=== PATIENT | male | born 2000 | race Caucasian/White ===

== ENCOUNTER → 2020-09-14 12:04 | Outpatient (CLI) | payer BC, SELFPAY ==
--- NOTE | ~2020-09-14 | XR_ITS ---
EXAMINATION: XR forearm RT 2V DATE: 09/14/2020 12:15 INDICATION: Right forearm injury and pain. TECHNIQUE: 2 views of right forearm were obtained. COMPARISON: None. FINDINGS: Bone alignment is normal. No fracture. Joint spaces are well maintained. There is no elbow joint effusion. IMPRESSION: 1. Normal right forearm. Reviewed, dictated and finalized at location A. IMPRESSION: 1. Normal right forearm.
== END ==
PROVIDERS: PCP Nurse Practitioner Adult Health; Visit Provider Pediatrics
DX: S59.911A Unspecified injury of right forearm, initial encounter (principal); X58.XXXA Exposure to other specified factors, initial encounter
CPT/HCPCS: 73090

== ENCOUNTER 2022-11-20 08:54 | Outpatient (CLI) | payer BC, SELFPAY ==
[2022-11-20 18:57] LABS: Basophils Percent Auto 0.7 % (0.2-1.2); Eosinophils Absolute Auto 0.2 K/mm3 (0-0.3); Eosinophils Percent Auto 3.6 % (0-4.4); Hematocrit 46.4 % (42.0-52.0); Hemoglobin 15.9 g/dL (14.0-18.0); Immature Granulocyte Absolute 0.02 K/mm3 (0.00-0.031); Immature Granulocyte Percent A 0.3 % (0-0.5); Lymphocytes Absolute Auto 2.18 K/mm3 (0.9-3.2); Lymphocytes Percent Auto 35.7 % (18.3-44.2); Mean Corpuscular HGB Conc 34.3 g/dl (32-36); Mean Corpuscular Hemoglobin 31.9 pg (26-34); Mean Corpuscular Volume 93.2 fl (80-100); Mean Platelet Volume 12.1 fl (7.4-10.4); Monocytes Absolute Auto 0.6 K/mm3 (0.1-0.6); Monocytes Percent Auto 10.5 % (2.6-8.5); Neutrophils Percent Auto 49.2 % (45.5-73.1); Platelet Count Result 219 k/mm3 (150-375); Red Blood Count 4.98 M/mm3 (4.6-6.20); Red Cell Distribution Width 11.3 % (11.5-14.5); White Blood Count 6.1 K/mm3 (4.5-10.0)
[2022-11-20 19:45] LABS: Hemoglobin A1C 4.9 % (<5.7)
[2022-11-20 20:12] LABS: Alanine Aminotransferase 96 U/L (6-50); Albumin Level 4.2 g/dL (3.5-5.1); Alkaline Phosphatase 68 U/L (38-126); Anion Gap 5 mmol/L (8-16); Aspartate Amino Transferase 52 U/L (17-59); Bilirubin,Total 0.5 mg/dL (0.2-1.3); Blood Urea Nitrogen 9 mg/dL (9-20); Calcium 8.9 mg/dL (8.4-10.2); Carbon Dioxide 29 mmol/L (22-30); Chloride 104 mmol/L (98-107); Cholesterol 148 mg/dL (0-200); Estimated Glomerular Filt Rate > 60; Glucose 88 mg/dL (65-110); HDL Direct 45 mg/dL; Potassium 4.1 mmol/L (3.4-5.0); Sodium 138 mmol/L (137-145); Triglycerides 250 mg/dL (<150)
[2022-11-20 20:23] LABS: LDL Cholesterol Direct 71 mg/dL
== END 2022-11-20 08:55 | disposition home or self-care (01) ==
LOC: ANHGOSHLAB 08:56
PROVIDERS: PCP Family Medicine; Visit Provider Family Medicine
DX: Z00.00 Encounter for general adult medical examination without abnormal findings (principal); R73.9 Hyperglycemia, unspecified; Z13.220 Encounter for screening for lipoid disorders; F41.8 Other specified anxiety disorders; G43.909 Migraine, unspecified, not intractable, without status migrainosus; E53.8 Deficiency of other specified B group vitamins; E55.9 Vitamin D deficiency, unspecified
CPT/HCPCS: 36415; 80053; 80061; 82306; 82607; 83036; 84443; 85025

== ENCOUNTER 2025-04-27 11:17 | Inpatient (IN) | payer BC, SELFPAY ==
[2025-04-27] VITALS (8 sets, daily range): BP systolic 129–153; BP diastolic 85–100; PULSE 72–88; RESP 15–19; TEMP 36.6; O2SAT 97–100; BMI 29.1
--- NOTE | ~2025-04-27 | XR_ITS ---
EXAMINATION: XR lumbar puncture diagnostic DATE: 04/28/2025 17:01 INDICATION: Ataxia and acute weakness in the lower extremities. 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 TECHNIQUE: The procedure including the risks and benefits was discussed with the patient. Risks discu ssed included spinal headache, cerebrospinal fluid leak, bleeding, and infection. The patient underst ood the risks and agreed to proceed. A timeout was performed to verify the patient's name, date of , and procedure to be performed. The skin overlying the L3-L4 level was prepped and draped in usual sterile fashion. Subcutaneous 1% lidocaine was used for local anesthesia. A 22 gauge spinal n eedle was advanced under fluoroscopic guidance. The needle was removed and the entry site was cleaned and dressed. There were no immediate complications. A total of 1 fluoroscopic image was obtained. T he amount of fluoroscopy time used during this procedure was 0.2 minutes. Total DAP was 0.876 Gycm^2. Following the procedure the patient was returned to the patient's room. FINDINGS: Real-time fluoroscopy demonstrates the needle at the L3-L4 level. Opening pressure was 16 c m water. (Normal range is variably defined as 6-20 cm water and up to 25 cm water in obese patients. Pressure >25 cm water is one of the modified Dandy criteria for idiopathic intracranial hypertension) . 16 mL of clear, colorless fluid was collected in 4 tubes. IMPRESSION: 1. Successful fluoro-guided lumbar puncture with normal opening pressure of 16 cm water. Reviewed, dictated and finalized at location A.
--- NOTE | ~2025-04-27 | MR_ITS ---
MR cervical spine wo/w con Ordering provider: Sana Moeller APRN History: . rule out GBS . Comparison: None. Technique: MRI cervical spine with and without contrast enhancement. 19 mL MultiHance was given IV. FINDINGS: CERVICAL SPINAL CORD/CRANIAL CERVICAL JUNCTION: Normal caliber. No abnormal enhancement. T2 bright si gnal is seen opposite the vertebrae of C4, C5 and C6. This most likely artifactual. No abnormal enhan cement is seen in this area. CERVICAL VERTEBRAL BODIES: Normal height and alignment. Normal marrow signal. No abnormal marrow enha ncement. DISK SPACES: Well maintained. C2-C3: No stenosis. Slight narrowing of the right intervertebral foramen by osteophyte. Enhancement in the intervertebral foramina is seen at multiple levels which may indicate metabolic en hancement.. C3-C4: No stenosis. C4-C5: No stenosis. C5-C6: No stenosis. Mild diffuse disc bulge. C6-C7: No stenosis. C7-T1: No stenosis. VISUALIZED PARASPINOUS SOFT TISSUES: Normal. No abnormal enhancement. IMPRESSION: 1. No definite bone abnormality. 2. No evidence of spinal canal stenosis or significant disc disease. 3. Enhancement in the intervertebral foramina is seen at multiple levels which may indicate enhancem ent in the nerve roots. Clinical correlation and follow-up advised. Reviewed, dictated and finalized at location A. IMPRESSION: 1. No definite bone abnormality. 2. No evidence of spinal canal stenosis or significant disc disease. 3. Enhancement in the intervertebral foramina is seen at multiple levels which may indicate enhancement in the nerve roots. Clinical correlation and follow-u p advised.
--- NOTE | ~2025-04-27 | CT_ITS ---
History: Weakness/numbness in all 4 extremities with dizziness and unsteady gait. Headache. PROCEDURE: CT head without contrast. COMPARISON: None TECHNIQUE: Axial imaging of the head performed from the skull base to the vertex without IV contrast. Sagittal a nd coronal reformations obtained. DLP: 681 mGy-cm FINDINGS: The ventricles are normal in size, shape and position. There is no mass, mass effect or midline shift. There is no abnormal extra-axial fluid collection or intracranial hemorrhage. Trace mucoperiosteal thickening within the bilateral ethmoid sinuses. Remaining paranasal sinuses are clear. The mastoid air cells are well aerated. No acute displaced fractures within the overlying cranium. Impression: No acute intracranial hemorrhage or suspicious mass effect. Trace inflammatory sinus disease. Reviewed, dictated and finalized at location A. Impression: No acute intracranial hemorrhage or suspicious mass effect. Trace inflammatory sinus disease.
--- NOTE | ~2025-04-27 | MR_ITS ---
MRI of the brain Clinical History: Ataxia, weakness Technique: Axial and sagittal T1-weighted images were acquired. These were followed by axial T2-weigh albert, diffusion weighted, gradient, and FLAIR images. Following intravenous administration of 19 cc Mu ltiHance gadolinium, T1-weighted fat-sat imaging was performed in the axial and coronal planes. Findings: No abnormal signal seen in the brain parenchyma. No acute infarct, intracranial hemorrhage, or mass lesion. Ventricles and subarachnoid spaces are unremarkable. Orbits are unremarkable. There are retention cys ts or polyps in the bilateral maxillary sinuses. Remaining paranasal sinuses and mastoid air cells ar e clear. Major intracranial flow voids are intact. Sagittal midline structures are intact. No abnormal postcontrast enhancement identified. IMPRESSION: No significant abnormality. Reviewed, dictated and finalized at [facility]. IMPRESSION: No significant abnormality.
--- NOTE | ~2025-04-27 | MR_ITS ---
Procedure: MR thoracic spine wo/w con Ordering provider: Sana Moeller APRN History: . rule out GBS, evaluate weakness . Comparison: None. Technique: MRI thoracic spine with and without contrast. 19 mL MultiHance was given IV. FINDINGS: SPINAL CORD: Normal. No abnormal enhancement of the spinal cord or spinal canal. VERTEBRAL BODIES: Normal height and alignment. No compression fracture. Normal marrow signal. No abno rmal marrow enhancement. Levoscoliosis. DISK SPACES: Normal. STENOSIS: None. No enhancement of the nerve roots is seen at multiple levels PARASPINOUS SOFT TISSUES: Normal. No abnormal enhancement of the paraspinous soft tissues. IMPRESSION: No compression fracture or significant stenosis of the thoracic spine. Enhancement in the nerve roots is seen at multiple levels which may indicate GBS Reviewed, dictated and finalized at location A. IMPRESSION: No compression fracture or significant stenosis of the thoracic spine. Enhancement in the nerve roots is seen at multiple levels which may indicate GB S
--- NOTE | ~2025-04-27 | MR_ITS ---
Procedure: MR lumbar spine wo/w con Ordering provider: Sana Moeller APRN History:25 years Male with . weakness, evaluate GBS . Comparison: None. Technique: MRI lumbar spine with and without contrast. 19 mL of MultiHance was given IV. FINDINGS: CONUS MEDULLARIS: Normal in position and appearance with no abnormal enhancement. The conus ends at t he level of T12-L1. This enhancement seen in the nerve roots of the cauda equina posteriorly. . LUMBAR VERTEBRAL BODIES: Normal height and alignment. no compression fracture. Normal marrow signal . No abnormal marrow enhancement. DISK SPACES: Normal. T12-L1: No stenosis. L1-L2: No stenosis. L2-L3: No stenosis. Enhancement in the left narrowing root is highly suggestive. 3-L4: No stenosis. Highly suggestive nerve root enhancement on both sides. L4-L5: No stenosis. Enhancement seen in both no pneumothorax and the foramina. L5-S1: No stenosis. Enhancement seen in the nerve root bilaterally PARASPINOUS SOFT TISSUES: Normal. No abnormal paraspinous enhancement. IMPRESSION: 1. 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 Clinical correlation and follow-up advised. Reviewed, dictated and finalized at location A. IMPRESSION: 1. No enhancement seen in the mesentery roots at multiple levels with enhancem ent seen in the cauda equina which may indicate GBS. Clinical correlation and f ollow-up advised.
--- NOTE | 2025-04-27 12:55 | ECG_ITS ---
Test Date: 2025-04-27 13:24:53 Measurements Intervals [place] Rate: 79 P: -2 OR: 140 QRS: 37 QRSD: 85 T: 44 QT: 368 QTc: 423 Interpretive Statements SINUS RHYTHM No previous ECG available for comparison Electronically Signed On 04-28-2025 11:05:49 CDT by Mercedes Preston M.D.
--- OUTSIDE RECORDS SUMMARY | 2025-04-27 13:04 | XMS_ITS | Continuity of Care Document ---
Author Organization [facility] Address [address] [place] [address] Phone Care Team Providers Care Ornament Setter Name Role Phone Ismael Rodgers MD Unavailable Unavailable Medications Medication Instructions Dosage Effective Dates (start - stop) Status Comments Singulair 5 mg Chewable Tab chew 1 tablet (5MG) by oral route every day in the evening - Active ProAir HFA 90 mcg/Actuation Aerosol Inhaler inhale 2 puff by inhalation route 4 - 6 hours as needed - Active Advair Diskus 100 mcg-50 mcg/dose for Inhalation inhale 1 puff by inhalation route 2 times every day in the morning and evening approximately 12 hours apart 1.00 puff - Active Veramyst 27.5 mcg/Actuation Nasal [place] spray 1-2 spray by intranasal route every day in each nostril - Active Clarinex 5 mg Tab take 1 tablet (5MG) by oral route every day 5 MG - Active Advance Directives Directive Yes / No Effective Date File Name No Information Encounters Encounter Description Practice Location Reason(s) For Visit Diagnoses Date Provider Providers Copied on Encounter [facility], [address], [place], [place], [id number], [place] tel:[phone] [facility] Allergic rhinitis due to other allergen Vishal Guevara. [address], [id number], [place]. tel:[phone] Referring Provider: Kimi Child, [address] [address], [place], [address]. tel:[phone] Family History Family Member Type Diagnosis Age At Onset Paternal grandmother Problem (finding) Allergies Father Problem (finding) asthma Father Problem (finding) Allergies Maternal grandmother Problem (finding) Allergies Sister Problem (finding) asthma Paternal grandmother Problem (finding) asthma Payers Payer name Insurance type Covered constitution party ID Authorhumbertodelfino scarleonor(s) BCBS INACTIVE AN[employer]M [employer]IANCE [id number] 2 Social History Type Description Quantity Date Captured Comments Alcohol Use Details Unknown Caffeine Use Details Unknown Tobacco Use Status No Information Smoking Status No Information Sex Male Sexual Orientation Lesbian, cummins or homosexual Vital Signs Date / Time: Height Weight BMI Pulse Rate Blood Pressure Temperature Respiratory Rate Body Surface Area Head Circumference Head Circ. Percentile Wt./Jono. Percentile BMI percentile Pulse Ox Inhaled Ox 2:41 PM 64.75 in 118.00 lbs 19.7 9 kg/m eter (2) 63 Chief Complaint And Reason For Visit No Information Reason For Referral Reason For Referral No Information History Of Present Illness Encounter Date Complaint History Of Prese nt Illness No Information Functional Status Date Functional Assessmen t No Information Instructions Date Instruction Additional Infor mation No Information Assessments Type Assessment Date No Information Patient Care Teams Name Effective Dates (start - stop) Status Members No Information
--- NOTE | 2025-04-27 13:35 | ED_ITS ---
HPI - General Adult General Chief complaint: Unspecified Stated complaint: htn, multiple neuro complaints x 2 days Time Seen by Provider: 04/27/25 12:14 History of Present Illness HPI narrative: This is a 25 old male presenting 3 days of extremity paresthesias. Patient notes over last several days he has had decreased sensation from his shoulders to his fingertips and below his knees. He has been dropping multiple things at home. He has been having difficulty ambulating and feels weak in his lower extremities. Patient denies any slurred speech facial droop or unilateral weakness. no headache, head trauma fevers chest pain difficulty breathing abdominal pain or visual changes. He has recently had diarrhea although that is normal for him as he is lactose entire roll tolerated. 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 Scoliosis Migraine Lactose intolerance in adult Anxiety with depression Surgical History Surgical History History of tonsillectomy and adenoidectomy (~2005) H/O tympanostomy (~2010) Family History Family History (Updated 04/27/25 @ 18:19 by Caleb Villarreal RN) Father DVT (deep venous thrombosis) Pulmonary embolism Asthma Mother Anxiety Sleep apnea Grandparent Malignant neoplasm of prostate Diabetes mellitus Sleep apnea Grandparent Dementia Social History Social History Smoking status: Never smoker Alcohol intake: never Substance use: never Substance use type: does not use Do You Feel Safe in your Home?: Yes Lack of Transportation: No Lack of Food: Never True Current Housing: I Have Housing Concerned About Future Housing: No Difficulty Paying Gas/Electric Bills: No Difficulty Paying for Meds: No Currently Unemployed: No Education: Trade/Vocational Certificate Difficulty w/ Childcare or Family Care: No Occupation/Education: occupation Additional occupation/education comments: [employer] Spiritual care concerns: No Exam 2 Narrative: APPEARANCE: No apparent distress. Head: atraumatic. EYES: EOMI, NOSE: Atraumatic NECK: Trachea midline RESPIRATORY: No increased rate of breathing CTAB CARDIOVASCULAR: RRR, ABDOMINAL: Non-distended MUSCULOSKELETAl: No obvious deformities NEURO: Alert. cranial nerves 2-12 grossly intact. Decreased sensation reported below the elbows and below the knees. 5/5 strength in the upper extremities 3 of 5 strength in the lower extremities. patellar reflexes intact. Gait is abnormal with short, heavy steps and imbalance. SKIN:: Warm, dry. Normal color PSYCHIATRIC: Normal affect Course Vital Signs Vital signs: Vital Signs Temperature 97.8 F 04/27/25 11:18 Pulse Rate 81 04/27/25 11:18 Respiratory Rate 18 04/27/25 11:18 Blood Pressure 150/100 H 04/27/25 11:18 Pulse Oximetry 100 04/27/25 11:18 Oxygen Delivery Room Air 04/27/25 11:18 Temperature 97 F L 05/05/25 04:44 Pulse Rate 89 05/05/25 04:44 Respiratory Rate 16 05/05/25 04:44 Blood Pressure 148/83 H 05/05/25 04:44 Pulse Oximetry 99 05/05/25 04:44 Oxygen Delivery Room Air 05/04/25 20:30 Fraction of Inspired Oxygen 21 05/04/25 20:30 Medical Decision Making [facility] Narrative Medical decision making narrative: -Course: 25-year-old male presenting paresthesias of his arms/legs and weakness of his lower extremities w/ gait abnormalities. CT head was negative. Laboratory studies within normal limits. -DDX includes but is not limited to: Guillain-[place], peripheral neuropathy, MS, transverse myelitis, spinal abscess -Co-morbidities complicating care: anxiety Vital Signs Vital Signs: Vital Signs Temperature 97.8 F 04/27/25 11:18 Pulse Rate 81 04/27/25 11:18 Respiratory Rate 18 04/27/25 11:18 Blood Pressure 150/100 H 04/27/25 11:18 Pulse Oximetry 100 04/27/25 11:18 Oxygen Delivery Room Air 04/27/25 11:18 Temperature 97 F L 05/05/25 04:44 Pulse Rate 89 05/05/25 04:44 Respiratory Rate 16 05/05/25 04:44 Blood Pressure 148/83 H 05/05/25 04:44 Pulse Oximetry 99 05/05/25 04:44 Oxygen Delivery Room Air 05/04/25 20:30 Fraction of Inspired Oxygen 21 05/04/25 20:30 Lab Data 05/05/25 05:34 05/05/25 05:34 Labs: Lab Results 04/27/25 04/27/25 04/27/25 Range/Units 13:45 14:31 20:10 WBC 7.2 (4.5-10.0) K/mm3 RBC 5.05 (4.6-6.20) M/mm3 Hgb 15.9 (14.0-18.0) g/dL Hct 47.1 (42.0-52.0) % MCV 93.3 (80-100) fl MCH 31.5 (26-34) pg MCHC 33.8 (32-36) g/dl RDW 11.4 L (11.5-14.5) % Plt Count 240 (150-375) k/mm3 MPV 11.3 H (7.4-10.4) fl Immature Gran % (Auto) 0.1 (0-0.5) % Neut % (Auto) 55.5 (45.5-73.1) % Lymph % (Auto) 32.7 (18.3-44.2) % [place] % (Auto) 8.2 (2.6-8.5) % Eos % (Auto) 3.1 (0-4.4) % Baso % (Auto) 0.4 (0.2-1.2) % Lymph # (Auto) 2.35 (0.9-3.2) K/mm3 [place] # (Auto) 0.6 (0.1-0.6) K/mm3 Eos # (Auto) 0.2 (0-0.3) K/mm3 Baso # (Auto) 0.0 (0.0-0.1) K/mm3 Abs Immat Gran (auto) 0.01 (0.00-0.031) K/mm3 Absolute Neuts (auto) 4.0 (1.3-6.7) K/mm3 Absolute Nucleated RBC 0.000 (0.0-0.012) K/mm3 Nucleated RBC % 0.0 (0.0-0.2) % PT 12.9 (11.1-14.7) Seconds INR 0.9 APTT 25.6 (22.3-36.8) Seconds Sodium 137 (137-145) mmol/L Potassium 4.1 (3.4-5.0) mmol/L Chloride 103 (98-107) mmol/L Carbon Dioxide 27 (22-30) mmol/L Anion Gap 7 (4-12) mmol/L BUN 11 (9-20) mg/dL Creatinine 0.87 (0.7-1.3) mg/dL Estim Creat Clear Calc Not Reportable Estimated GFR > 60 (59 - ) Glucose 88 (65-110) mg/dL POC Capillary Glucose 106 H (65-105) mg/dl Hemoglobin A1c 4.8 (<5.7) % Calcium 9.7 (8.4-10.2) mg/dL Phosphorus 3.7 (2.5-4.5) mg/dL Magnesium 2.0 (1.6-2.3) mg/dL Total Bilirubin 0.7 (0.2-1.3) mg/dL AST 51 (17-59) U/L ALT 87 H (6-50) U/L Alkaline Phosphatase 71 (38-126) U/L Total Creatine Kinase 96 (55-170) U/L Total Protein 8.0 (6.3-8.2) g/dL Albumin 4.6 (3.5-5.1) g/dL Lipase 57 (23-300) U/L Vitamin B1 14 (8-30) nmol/L Vitamin B6 17.2 (2.1-21.7) ng/mL Vitamin B12 280.0 (239-931) pg/mL Methylmalonic Acid 135 (55-335) nmol/L Vitamin D 25-Hydroxy < 12.8 ng/mL Folate 8.6 (2.76->20) ng/mL Homocysteine 10.7 (< or = 12.9) umol/L TSH (Reflex) 2.640 (0.465-4.68) uIU/mL Urine Color Yellow (Yellow) Urine Appearance Clear (Clear) Urine pH 6.5 (5.0-9.0) Ur Specific [place] 1.013 (1.001-1.035) Urine Protein Negative (Negative) mg/dL Urine Glucose (UA) Negative (Negative) mg/dL Urine Ketones Negative (Negative) mg/dL Ur Blood (Man) Negative (Negative) Urine Nitrate Negative (Negative) Urine Bilirubin Negative (Negative) Urine Urobilinogen 0.2 (<2.0) mg/dL Leukocyte Esterase Rfl Negative (Negative) MEGAN/UL Fluid EBV Source CSF Source CSF Appearance (Clear) CSF Color (Colorless) CSF RBC (0-2) CSF Tot Nucleated Cells (0-5) /uL CSF Neutrophils (0-6) % CSF Lymphocytes (40-80) % CSF Monocytes (15-45) % CSF Glucose (40-70) mg/dL CSF Total Protein (12-60) mg/dL CSF VDRL CSF EBV DNA (PCR) (Not Detected) CSF Herpes I DNA (PCR) (Not Detected) CSF Herpes II DNA (PCR) (Not Detected) CSF VZV DNA (PCR) (Not Detected) Urine Opiates Screen Negative (Negative) Urine Methadone Screen Negative (Negative) Ur Barbiturates Screen Negative (Negative) Ur Phencyclidine Scrn Negative (Negative) Ur Amphetamine Screen Negative (Negative) U Benzodiazepines Scrn Negative (Negative) Urine Cocaine Screen Negative (Negative) U Cannabinoids Screen Negative (Negative) Ethyl Alcohol < 10 (<10) mg/dL Serum Immunofixation Normal pattern. CMV IgM Ab AU/mL EBV (Quant-PCR) Quant (Not Detected) IU/mL EBV Capsid Ag IgG Ab U/mL EBV Capsid Ag IgM Ab U/mL EBV Nucl Ag IgG Sig Str U/mL EBV Nuc Ag IgG Interp EBV DNA Quant PCR log10 (Not Detected) log IU/mL HSV (PCR) Source Influenza A (RT-PCR) Negative (Negative) Influenza B (RT-PCR) Negative (Negative) Mycoplasma pneumon IgG Mycoplasma pneumon IgM U/mL RSV (RT-PCR) Negative (Negative) Resp Viral Panel Intrp SARS-CoV-2 RNA (RT-PCR) Negative (Negative) VZV (PCR) Source Viral Specimen Source 04/28/25 04/28/25 04/28/25 Range/Units 04:45 15:18 16:33 WBC 7.0 (4.5-10.0) K/mm3 RBC 4.95 (4.6-6.20) M/mm3 Hgb 15.5 (14.0-18.0) g/dL Hct 46.8 (42.0-52.0) % MCV 94.5 (80-100) fl MCH 31.3 (26-34) pg MCHC 33.1 (32-36) g/dl RDW 11.5 (11.5-14.5) % Plt Count 213 (150-375) k/mm3 MPV 11.5 H (7.4-10.4) fl Immature Gran % (Auto) 0.1 (0-0.5) % Neut % (Auto) 48.5 (45.5-73.1) % Lymph % (Auto) 38.8 (18.3-44.2) % [place] % (Auto) 9.3 H (2.6-8.5) % Eos % (Auto) 2.9 (0-4.4) % Baso % (Auto) 0.4 (0.2-1.2) % Lymph # (Auto) 2.70 (0.9-3.2) K/mm3 [place] # (Auto) 0.7 H (0.1-0.6) K/mm3 Eos # (Auto) 0.2 (0-0.3) K/mm3 Baso # (Auto) 0.0 (0.0-0.1) K/mm3 Abs Immat Gran (auto) 0.01 (0.00-0.031) K/mm3 Absolute Neuts (auto) 3.4 (1.3-6.7) K/mm3 Absolute Nucleated RBC 0.000 (0.0-0.012) K/mm3 Nucleated RBC % 0.0 (0.0-0.2) % PT (11.1-14.7) Seconds INR APTT (22.3-36.8) Seconds Sodium 136 L (137-145) mmol/L Potassium 4.3 (3.4-5.0) mmol/L Chloride 104 (98-107) mmol/L Carbon Dioxide 23 (22-30) mmol/L Anion Gap 9 (4-12) mmol/L BUN 12 (9-20) mg/dL Creatinine 0.90 (0.7-1.3) mg/dL Estim Creat Clear Calc 115 Estimated GFR > 60 (59 - ) Glucose 93 (65-110) mg/dL POC Capillary Glucose (65-105) mg/dl Hemoglobin A1c (<5.7) % Calcium 9.4 (8.4-10.2) mg/dL Phosphorus (2.5-4.5) mg/dL Magnesium (1.6-2.3) mg/dL Total Bilirubin 1.0 (0.2-1.3) mg/dL AST 44 (17-59) U/L ALT 80 H (6-50) U/L Alkaline Phosphatase 62 (38-126) U/L Total Creatine Kinase (55-170) U/L Total Protein 7.0 (6.3-8.2) g/dL Albumin 4.1 (3.5-5.1) g/dL Lipase (23-300) U/L Vitamin B1 (8-30) nmol/L Vitamin B6 (2.1-21.7) ng/mL Vitamin B12 (239-931) pg/mL Methylmalonic Acid (55-335) nmol/L Vitamin D 25-Hydroxy ng/mL Folate (2.76->20) ng/mL Homocysteine (< or = 12.9) umol/L TSH (Reflex) 3.050 (0.465-4.68) uIU/mL Urine Color (Yellow) Urine Appearance (Clear) Urine pH (5.0-9.0) Ur Specific [place] (1.001-1.035) Urine Protein (Negative) mg/dL Urine Glucose (UA) (Negative) mg/dL Urine Ketones (Negative) mg/dL Ur Blood (Man) (Negative) Urine Nitrate (Negative) Urine Bilirubin (Negative) Urine Urobilinogen (<2.0) mg/dL Leukocyte Esterase Rfl (Negative) MEGAN/UL Fluid EBV Source Results below CSF Source Csf CSF Appearance Clear (Clear) CSF Color Colorless (Colorless) CSF RBC 2.2 H (0-2) CSF Tot Nucleated Cells 0 (0-5) /uL CSF Neutrophils 1 (0-6) % CSF Lymphocytes 51 (40-80) % CSF Monocytes 5 L (15-45) % CSF Glucose 63 (40-70) mg/dL CSF Total Protein 50 (12-60) mg/dL CSF VDRL CSF EBV DNA (PCR) Not detected (Not Detected) CSF Herpes I DNA (PCR) (Not Detected) CSF Herpes II DNA (PCR) (Not Detected) CSF VZV DNA (PCR) Not detected (Not Detected) Urine Opiates Screen (Negative) Urine Methadone Screen (Negative) Ur Barbiturates Screen (Negative) Ur Phencyclidine Scrn (Negative) Ur Amphetamine Screen (Negative) U Benzodiazepines Scrn (Negative) Urine Cocaine Screen (Negative) U Cannabinoids Screen (Negative) Ethyl Alcohol (<10) mg/dL Serum Immunofixation CMV IgM Ab AU/mL EBV (Quant-PCR) Quant (Not Detected) IU/mL EBV Capsid Ag IgG Ab U/mL EBV Capsid Ag IgM Ab U/mL EBV Nucl Ag IgG Sig Str U/mL EBV Nuc Ag IgG Interp EBV DNA Quant PCR log10 (Not Detected) log IU/mL HSV (PCR) Source Influenza A (RT-PCR) (Negative) Influenza B (RT-PCR) (Negative) Mycoplasma pneumon IgG Mycoplasma pneumon IgM U/mL RSV (RT-PCR) (Negative) Resp Viral Panel Intrp See note SARS-CoV-2 RNA (RT-PCR) (Negative) VZV (PCR) Source Blood Viral Specimen Source Flex swab 04/28/25 04/29/25 04/29/25 Range/Units 16:34 05:06 05:07 WBC 6.5 (4.5-10.0) K/mm3 RBC 4.87 (4.6-6.20) M/mm3 Hgb 15.2 (14.0-18.0) g/dL Hct 45.1 (42.0-52.0) % MCV 92.6 (80-100) fl MCH 31.2 (26-34) pg MCHC 33.7 (32-36) g/dl RDW 11.3 L (11.5-14.5) % Plt Count 216 (150-375) k/mm3 MPV 11.7 H (7.4-10.4) fl Immature Gran % (Auto) 0.2 (0-0.5) % Neut % (Auto) 54.5 (45.5-73.1) % Lymph % (Auto) 32.7 (18.3-44.2) % [place] % (Auto) 8.7 H (2.6-8.5) % Eos % (Auto) 3.4 (0-4.4) % Baso % (Auto) 0.5 (0.2-1.2) % Lymph # (Auto) 2.13 (0.9-3.2) K/mm3 [place] # (Auto) 0.6 (0.1-0.6) K/mm3 Eos # (Auto) 0.2 (0-0.3) K/mm3 Baso # (Auto) 0.0 (0.0-0.1) K/mm3 Abs Immat Gran (auto) 0.01 (0.00-0.031) K/mm3 Absolute Neuts (auto) 3.6 (1.3-6.7) K/mm3 Absolute Nucleated RBC 0.000 (0.0-0.012) K/mm3 Nucleated RBC % 0.0 (0.0-0.2) % PT (11.1-14.7) Seconds INR APTT (22.3-36.8) Seconds Sodium 137 (137-145) mmol/L Potassium 4.0 (3.4-5.0) mmol/L Chloride 103 (98-107) mmol/L Carbon Dioxide 27 (22-30) mmol/L Anion Gap 7 (4-12) mmol/L BUN 12 (9-20) mg/dL Creatinine 0.89 (0.7-1.3) mg/dL Estim Creat Clear Calc 116 Estimated GFR > 60 (59 - ) Glucose 92 (65-110) mg/dL POC Capillary Glucose (65-105) mg/dl Hemoglobin A1c (<5.7) % Calcium 9.6 (8.4-10.2) mg/dL Phosphorus (2.5-4.5) mg/dL Magnesium (1.6-2.3) mg/dL Total Bilirubin (0.2-1.3) mg/dL AST (17-59) U/L ALT (6-50) U/L Alkaline Phosphatase (38-126) U/L Total Creatine Kinase (55-170) U/L Total Protein (6.3-8.2) g/dL Albumin (3.5-5.1) g/dL Lipase (23-300) U/L Vitamin B1 (8-30) nmol/L Vitamin B6 (2.1-21.7) ng/mL Vitamin B12 (239-931) pg/mL Methylmalonic Acid (55-335) nmol/L Vitamin D 25-Hydroxy ng/mL Folate (2.76->20) ng/mL Homocysteine (< or = 12.9) umol/L TSH (Reflex) (0.465-4.68) uIU/mL Urine Color (Yellow) Urine Appearance (Clear) Urine pH (5.0-9.0) Ur Specific [place] (1.001-1.035) Urine Protein (Negative) mg/dL Urine Glucose (UA) (Negative) mg/dL Urine Ketones (Negative) mg/dL Ur Blood (Man) (Negative) Urine Nitrate (Negative) Urine Bilirubin (Negative) Urine Urobilinogen (<2.0) mg/dL Leukocyte Esterase Rfl (Negative) MEGAN/UL Fluid EBV Source CSF Source CSF Appearance (Clear) CSF Color (Colorless) CSF RBC (0-2) CSF Tot Nucleated Cells (0-5) /uL CSF Neutrophils (0-6) % CSF Lymphocytes (40-80) % CSF Monocytes (15-45) % CSF Glucose (40-70) mg/dL CSF Total Protein (12-60) mg/dL CSF VDRL Non-reactive CSF EBV DNA (PCR) (Not Detected) CSF Herpes I DNA (PCR) Not detected (Not Detected) CSF Herpes II DNA (PCR) Not detected (Not Detected) CSF VZV DNA (PCR) (Not Detected) Urine Opiates Screen (Negative) Urine Methadone Screen (Negative) Ur Barbiturates Screen (Negative) Ur Phencyclidine Scrn (Negative) Ur Amphetamine Screen (Negative) U Benzodiazepines Scrn (Negative) Urine Cocaine Screen (Negative) U Cannabinoids Screen (Negative) Ethyl Alcohol (<10) mg/dL Serum Immunofixation CMV IgM Ab <30.00 AU/mL EBV (Quant-PCR) Quant Not detected (Not Detected) IU/mL EBV Capsid Ag IgG Ab <18.00 U/mL EBV Capsid Ag IgM Ab <36.00 U/mL EBV Nucl Ag IgG Sig Str <18.00 U/mL EBV Nuc Ag IgG Interp EBV DNA Quant PCR log10 Not detected (Not Detected) log IU/mL HSV (PCR) Source Results below Influenza A (RT-PCR) (Negative) Influenza B (RT-PCR) (Negative) Mycoplasma pneumon IgG 3.09 H Mycoplasma pneumon IgM 553 U/mL RSV (RT-PCR) (Negative) Resp Viral Panel Intrp SARS-CoV-2 RNA (RT-PCR) (Negative) VZV (PCR) Source Viral Specimen Source Discharge Plan Discharge Clinical Impression: Leg weakness Patient Disposition: Still a Patient Condition: Stable
[2025-04-27 13:48] LABS: Glucose Point of Care 106 mg/dl (65-105)
[2025-04-27 14:41] LABS: Basophils Percent Auto 0.4 % (0.2-1.2); Eosinophils Absolute Auto 0.2 K/mm3 (0-0.3); Eosinophils Percent Auto 3.1 % (0-4.4); Hematocrit 47.1 % (42.0-52.0); Hemoglobin 15.9 g/dL (14.0-18.0); Immature Granulocyte Absolute 0.01 K/mm3 (0.00-0.031); Immature Granulocyte Percent A 0.1 % (0-0.5); Lymphocytes Absolute Auto 2.35 K/mm3 (0.9-3.2); Lymphocytes Percent Auto 32.7 % (18.3-44.2); Mean Corpuscular HGB Conc 33.8 g/dl (32-36); Mean Corpuscular Hemoglobin 31.5 pg (26-34); Mean Corpuscular Volume 93.3 fl (80-100); Mean Platelet Volume 11.3 fl (7.4-10.4); Monocytes Absolute Auto 0.6 K/mm3 (0.1-0.6); Monocytes Percent Auto 8.2 % (2.6-8.5); Neutrophils Percent Auto 55.5 % (45.5-73.1); Platelet Count Result 240 k/mm3 (150-375); Red Blood Count 5.05 M/mm3 (4.6-6.20); Red Cell Distribution Width 11.4 % (11.5-14.5); White Blood Count 7.2 K/mm3 (4.5-10.0)
[2025-04-27 14:50] LABS: Add Urine Microscopic? NO; Appearance Urine Clear (Clear); Bilirubin Urine Negative (Negative); Blood Urine Negative (Negative); Color Urine Yellow (Yellow); Ethanol < 10 mg/dL (<10); Glucose Urine UA Negative (Negative); Ketones Urine Negative (Negative); Leukocyte Esterase Ur Negative LEU/UL (Negative); Nitrate Urine Negative (Negative); Protein Urine Negative (Negative); Specific Grav Ur 1.013 (1.001-1.035); Urobilinogen Urine 0.2 mg/dL (<2.0); pH Urine 6.5 (5.0-9.0)
[2025-04-27 14:58] LABS: INR 0.9; Partial Thromboplastin Time 25.6 Seconds (22.3-36.8); Prothrombin Time 12.9 Seconds (11.1-14.7)
[2025-04-27 15:11] LABS: Amphetamine Screen Urine Negative (Negative); Barbiturate Screen Urine Negative (Negative); Benzodiazepines Screen Urine Negative (Negative); Cannabinoid Screen Urine Negative (Negative); Cocaine Screen Urine Negative (Negative); Methadone Screen Urine Negative (Negative); Opiate Screen Urine Negative (Negative); Phencyclidine Screen Urine Negative (Negative)
[2025-04-27 15:22] LABS: Influenza A QL RT-PCR Negative (Negative); Influenza B QL RT-PCR Negative (Negative); RSV RNA, RT-PCR Negative (Negative); SARS-CoV-2 RNA PCR Negative (Negative)
[2025-04-27 16:21] LABS: Alanine Aminotransferase 87 U/L (6-50); Albumin Level 4.6 g/dL (3.5-5.1); Alkaline Phosphatase 71 U/L (38-126); Anion Gap 7 mmol/L (4-12); Aspartate Amino Transferase 51 U/L (17-59); Bilirubin,Total 0.7 mg/dL (0.2-1.3); Blood Urea Nitrogen 11 mg/dL (9-20); Calcium 9.7 mg/dL (8.4-10.2); Carbon Dioxide 27 mmol/L (22-30); Chloride 103 mmol/L (98-107); Creatine Kinase 96 U/L (55-170); Estimated Glomerular Filt Rate > 60; Glucose 88 mg/dL (65-110); Lipase 57 U/L (23-300); Phosphorus 3.7 mg/dL (2.5-4.5); Potassium 4.1 mmol/L (3.4-5.0); Sodium 137 mmol/L (137-145)
--- OUTSIDE RECORDS SUMMARY | 2025-04-27 17:26 | XMS_ITS | Continuity of Care Document ---
Author Organization [facility] Address [address] [place] [address] Phone Care Team Providers Care Beater Lead Name Role Phone Ismael Rodgers MD Unavailable [...] puff - Active Veramyst 27.5 mcg/Actuation Nasal [place] spray 1-2 spray by intranasal route every day in each nostril - Active Clarinex 5 mg Tab take 1 tablet (5MG) by oral route every day 5 MG - Active Advance Directives Directive Yes / No Effective Date File Name No Information Encounters Encounter Description Practice Location Reason(s) For Visit Diagnoses Date Provider Providers Copied on Encounter [facility], [address], [place], [place], [id number], [place] tel:[phone] [facility] Allergic rhinitis due to other allergen Vishal Guevara. [address], [id number], [place]. tel:[phone] Referring Provider: Kimi Child, [address], [place], [address]. tel:[phone] Family History Family Member Type Diagnosis Age At Onset Paternal grandmother Problem (finding) Allergies Father Problem (finding) asthma Father Problem (finding) Allergies Maternal grandmother Problem (finding) Allergies Sister Problem (finding) asthma Paternal grandmother Problem (finding) asthma Payers Payer name Insurance type Covered constitution party ID Authorhumbertodelfino scarleonor(s) BCBS INACTIVE [employer]M [employer]IANCE [id number] 2 Social History Type Description Quantity Date Captured Comments Alcohol Use Details Unknown Caffeine Use Details Unknown Tobacco Use Status No Information Smoking Status No Information Sex Male Sexual Orientation Straight or heterosexual Vital Signs Date / Time: Height Weight [...]
--- NOTE | 2025-04-27 17:30 | ADMGEN ---
This patient, Kayode Babcock, was admitted to 2 Medical Room 250-01. Patient/family oriented to hospital policies and general routines including ID bracelet, bed and alarms, visiting hours, pain management, procedures, bathroom and other care routines, personal items, smoking policy, room service/diet, and visiting hours. Information on how to activate the Rapid Response Team has been discussed. Patient/Family are encouraged to report perceived risks to care and to ask questions if they do not understand what they are told or what they should do.
--- NOTE | 2025-04-27 17:56 | P.CONNEU_ITS ---
Assessment and Plan Assessment and plan (1) Difficulty in walking: Code(s): R26.2 - Difficulty in walking, not elsewhere classified Status: Acute (2) Weakness generalized: Code(s): R53.1 - Weakness Status: Acute Plan clinically patient is a suspect for GBS. However I would suggest MRI of the brain with and without contrast to look into possibility of multiple sclerosis. However there is no upper motor neuron signs observed in the upper or lower limbs at this time. no cerebellar dysfunction was noted however he does have mild ataxia add during gait testing. If the MRI is normal I would suggest spinal tap and please call me with the results of those I shall be glad to advise further. His breathing pattern should be closely observed. Bedside pulmonary function can be offered if necessary. Blood pressure fluctuations can occur Due to autonomic dysfunction and should be monitored. Consult date: 04/27/25 HPI: Kayode Babcock is a 25 year old male with history of bronchial asthma and migraine presented with the weakness in upper and lower limbs and imbalance in walking for last 2 days. He denies having any trauma or infection in the last month. No viral vaccinations given. He denies any difficulty with vision or swallowing or speech. No bladder or bowel disturbance. No history of such symptoms in the past. History of for diarrhea last week and however he has history of lactose intolerance. He also found to have high blood pressure today and he was advised to go to emergency room. In the emergency room he was noted to have difficulty with walking and a he underwent CT scan of brain. Review of Systems 2 Review of Systems: All systems reviewed & are unremarkable except as noted in HPI and below PMFSH Past Medical History Medical History (Updated 04/27/25 @ 18:05 by Savanah Wood MD) Weakness generalized Difficulty in walking Annual visit for general adult medical examination without abnormal findings Environmental allergies Scoliosis Migraine Lactose intolerance in adult Anxiety with depression Seasonal allergies Surgical History Surgical History History of tonsillectomy and adenoidectomy (~2005) H/O tympanostomy (~2010) Family History Family History Father Asthma Pulmonary embolism DVT (deep venous thrombosis) Mother Anxiety Grandparent Malignant neoplasm of prostate Social History Social History Smoking status: Never smoker Alcohol intake: current Substance use: never Substance use type: does not use Lack of Transportation: No Lack of Food: Never True Current Housing: I Have Housing Concerned About Future Housing: No Difficulty Paying Gas/Electric Bills: No Difficulty Paying for Meds: No Currently Unemployed: No Education: High School Diploma/GED Difficulty w/ Childcare or Family Care: No Occupation/Education: occupation 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 Home Medications and Allergies Home Medications ?Medication ?Instructions ?Recorded ?Confirmed ?Type cetirizine 10 mg tablet (Zyrtec) 10 mg PO DAILY PRN allergy symptoms 11/19/22 04/27/25 History albuterol sulfate 90 mcg/actuation 1 puff inhalation Q4H PRN 01/26/25 04/27/25 Rx aerosol inhaler shortness of breath or wheezing #8.5 grams hydroxyzine HCl 10 mg tablet 10 mg PO TID PRN anxiety #30 tabs 01/26/25 04/27/25 Rx Allergies Allergy/AdvReac Type Severity Reaction Status Date / Time No Known Allergies Allergy Mild Verified 04/27/25 17:40 Vital Signs Vital Signs - 24 hr 04/27/25 11:18 04/27/25 11:24 04/27/25 13:37 Temperature 97.8 F Pulse Rate 81 88 76 Respiratory Rate 18 15 Blood Pressure 150/100 H 131/95 H Pulse Oximetry 100 98 Oxygen Delivery Room Air 04/27/25 13:37 04/27/25 14:29 04/27/25 16:02 Temperature Pulse Rate 76 79 80 Respiratory Rate 19 17 19 Blood Pressure 137/91 H 129/94 H 142/92 H Pulse Oximetry 97 98 98 Oxygen Delivery 04/27/25 17:27 04/27/25 17:44 Temperature 97.9 F 97.9 F Pulse Rate 81 72 Respiratory Rate 18 18 Blood Pressure 138/86 153/98 H Pulse Oximetry 97 97 Oxygen Delivery Exam 2 Const: General: cooperative, well developed and alert O rientation/consciousness: patient oriented x3 HENMT: Head: atraumatic Mouth: Yes oropharynx normal Eyes: Alignment and Position: position normal Pupils: Equal, round and reactive pupils present EOM: EOMs intact bilaterally Neck: Neck: supple Resp: Effort & Inspection: normal respiratory effort Skin: General skin exam: normal color Neuro: General: patient oriented x3 Cranial nerves: Yes CN's II-XII intact bilaterally, Yes facial sensation intact/muscles of mastication intact, Yes Equal, round and reactive pupils present, Yes facial symmetry and Yes Midline tongue present Cognition (Neuro): normal cognition Speech: normal speech Coordination: [id number] test normal and Normal rapid alternating movements of the distal upper extremity present (Neuro) Other: Mild weakness of proximal muscles in lower limbs power grade 4 +over 5 particularly hip flexion. Deep tendon reflexes were absent at knees and ankles. Distal sensory loss in both lower limbs. he had difficulty getting out of the bed and also on walking. Psych: Affect: normal affect Results Labs 04/27/25 14:31 04/27/25 14:31 Labs: Short CBC 04/27/25 Range/Units 14:31 WBC 7.2 (4.5-10.0) K/mm3 Hgb 15.9 (14.0-18.0) g/dL Hct 47.1 (42.0-52.0) % Plt Count 240 (150-375) k/mm3 BMP 04/27/25 14:31 Sodium 137 Potassium 4.1 Chloride 103 Carbon Dioxide 27 BUN 11 Creatinine 0.87 Glucose 88 Calcium 9.7 Cardiac Enzymes 04/27/25 Range/Units 14:31 Total Creatine Kinase 96 (55-170) U/L Liver Function 04/27/25 Range/Units 14:31 Total Bilirubin 0.7 (0.2-1.3) mg/dL AST 51 (17-59) U/L ALT 87 H (6-50) U/L Alkaline Phosphatase 71 (38-126) U/L Albumin 4.6 (3.5-5.1) g/dL Urine 04/27/25 Range/Units 14:31 Urine Color Yellow (Yellow) Urine Appearance Clear (Clear) Urine pH 6.5 (5.0-9.0) Ur Specific [place] 1.013 (1.001-1.035) Urine Protein Negative (Negative) mg/dL Urine Glucose (UA) Negative (Negative) mg/dL Imaging My impression: CT scan of brain without contrast did not show any significant abnormalities.
--- NOTE | 2025-04-27 18:00 | P.HP_ITS ---
H&P: HPI History of Present Illness Date/Time: 04/27/25 18:00 Chief Complaint: Weakness/Numbness to Extremities Narrative: 25 y/o M with asthma and migraines presents here with weakness and paresthesias to his upper and lower extremities. The patient presents here from home for further evaluation of weakness and paresthesias to his bilateral upper and lower extremities. He reports onset approximately 2 days ago. Numbness/weakness affected all extremities at once, did not start in uppers or lowers. It is also accompanied by gait disturbance. Further described as a shuffling, short stepped gait. No accompanying vision changes, dysphagia, dysarthria, or shortness of breath. He denies any precipitating trauma, vaccinations/live vaccinations, or infections. He denies any significant neurological family history or personal history. He is also reporting diarrhea for the past week, however he does have a history of lactose intolerance. Blood pressure upon arrival was 150/100, he reports no/history of hypertension. Initial VS at presentation: 97.8? F, HR 81, RR 18, 150/100, and 100% on RA. ED workup showed: no leukocytosis or anemia, normal coags, no significant electrolyte derangements, renal function within normal limits, glucose 106, ALT 87, UA unremarkable, UDS negative, ethanol negative, viral PCR negative. Head CT showed no acute intracranial hemorrhage or suspicious mass effect, trace inflammatory sinus disease. Review of Systems Review of Systems: All systems reviewed & are unremarkable except as noted in HPI and below PMFSH Past Medical History Medical History Environmental allergies Scoliosis Migraine Lactose intolerance in adult Anxiety with depression Surgical History Surgical History History of tonsillectomy and adenoidectomy (~2005) H/O tympanostomy (~2010) Family History Family History (Updated 04/27/25 @ 18:19 by Caleb Villarreal RN) Father DVT (deep venous thrombosis) Pulmonary embolism Asthma Mother Anxiety Sleep apnea Grandparent Malignant neoplasm of prostate Diabetes mellitus Sleep apnea Grandparent Dementia Social History Social History Smoking status: Never smoker Alcohol intake: never Substance use: never Substance use type: does not use Do You Feel Safe in your Home?: Yes Lack of Transportation: No Lack of Food: Never True Current Housing: I Have Housing Concerned About Future Housing: No Difficulty Paying Gas/Electric Bills: No Difficulty Paying for Meds: No Currently Unemployed: No Education: Trade/Vocational Certificate Difficulty w/ Childcare or Family Care: No Occupation/Education: occupation 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 Spiritual care concerns: No Meds Home Medications and Allergies Home Medications ?Medication ?Instructions ?Recorded ?Confirmed ?Type cetirizine 10 mg tablet (Zyrtec) 10 mg PO DAILY PRN allergy symptoms 11/19/22 04/27/25 History albuterol sulfate 90 mcg/actuation 1 puff inhalation Q4H PRN 01/26/25 04/27/25 Rx aerosol inhaler shortness of breath or wheezing #8.5 grams hydroxyzine HCl 10 mg tablet 10 mg PO TID PRN anxiety #30 tabs 01/26/25 04/27/25 Rx Allergies Allergy/AdvReac Type Severity Reaction Status Date / Time No Known Allergies Allergy Mild Verified 04/27/25 17:40 Vital Signs Vital Signs - 24 hr 04/27/25 11:18 04/27/25 11:24 04/27/25 13:37 Temperature 97.8 F Pulse Rate 81 88 76 Respiratory Rate 18 15 Blood Pressure 150/100 H 131/95 H Pulse Oximetry 100 98 Oxygen Delivery Room Air 04/27/25 13:37 04/27/25 14:29 04/27/25 16:02 Temperature Pulse Rate 76 79 80 Respiratory Rate 19 17 19 Blood Pressure 137/91 H 129/94 H 142/92 H Pulse Oximetry 97 98 98 Oxygen Delivery 04/27/25 17:27 04/27/25 17:44 Temperature 97.9 F 97.9 F Pulse Rate 81 72 Respiratory Rate 18 18 Blood Pressure 138/86 153/98 H Pulse Oximetry 97 97 Oxygen Delivery Exam Const: General: comfortable and no acute distress Other: , male, nontoxic appearance HENMT: Face/Nose/Sinus: Normal nares present Mouth: Yes moist mucous membranes Eyes: General: appearance normal, both eyes and all related structures Sclera: sclerae normal Pupils: Equal, round and reactive pupils present EOM: EOMs intact bilaterally Resp: Effort & Inspection: normal respiratory effort Auscultation: clear to auscultation bilaterally Cardio: Rate: regular rate Rhythm: regular rhythm Other: S1-S2 present without murmur, rub, ectopy GI: Other: Abdomen soft, nondistended, nontender. Normoactive bowel sounds in all quadrants. Skin: General skin exam: normal color and no rashes or lesions noted Wounds: no wounds Neuro: Speech: normal speech Other: Paresthesias/sensory loss below the knee bilaterally. Mild weakness noted to lower extremities, symmetric. DTR absent in knees and ankles. Gait affected. Extrem: General: normal to inspection Psych: Mental Status: mental status grossly normal Affect: normal affect Other: Good insight and judgment, very pleasant H&P: Results Labs Labs: Short CBC 04/27/25 Range/Units 14:31 WBC 7.2 (4.5-10.0) K/mm3 Hgb 15.9 (14.0-18.0) g/dL Hct 47.1 (42.0-52.0) % Plt Count 240 (150-375) k/mm3 BMP 04/27/25 14:31 Sodium 137 Potassium 4.1 Chloride 103 Carbon Dioxide 27 BUN 11 Creatinine 0.87 Glucose 88 Calcium 9.7 Cardiac Enzymes 04/27/25 Range/Units 14:31 Total Creatine Kinase 96 (55-170) U/L Liver Function 04/27/25 Range/Units 14:31 Total Bilirubin 0.7 (0.2-1.3) mg/dL AST 51 (17-59) U/L ALT 87 H (6-50) U/L Alkaline Phosphatase 71 (38-126) U/L Albumin 4.6 (3.5-5.1) g/dL Urine 04/27/25 Range/Units 14:31 Urine Color Yellow (Yellow) Urine Appearance Clear (Clear) Urine pH 6.5 (5.0-9.0) Ur Specific [place] 1.013 (1.001-1.035) Urine Protein Negative (Negative) mg/dL Urine Glucose (UA) Negative (Negative) mg/dL Assessment and Plan Assessment and plan (1) Weakness generalized: Code(s): R53.1 - Weakness Status: Acute Assessment and Plan: - weakness and paresthesias to bilateral upper and lower extremities with onset 2 days ago, 04/25. Onset to all extremities, did not endorse ascending or descending symptomatology - neurology consulted, Israel MCCULLOUGH. 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 Call with results for further recommendations. Monitor breathing pattern closely bedside pulmonary function testing if necessary /indicated BP fluctuations can occur due to autonomic dysfunction, monitor - additional testing including vitamin-D, vitamin B1/B12/B6, methylmalonic acid, immunofixation serum, homocystine, A1c. Add TSH. - will hold on consultation to speech therapy at this time for swallow study, patient reports no dysphagia or choking episodes (2) Difficulty in walking: Code(s): R26.2 - Difficulty in walking, not elsewhere classified Status: Acute Assessment and Plan: - See above (3) Elevated blood pressure reading without diagnosis of hypertension: Code(s): R03.0 - Elevated blood-pressure reading, without diagnosis of hypertension Status: Acute Assessment and Plan: - initial BP 150/100, no previous diagnosis of hypertension - here for symptomatology concerning for autonomic dysfunction and Guillain- Lincoln syndrome. Neurology noted that there may be blood pressure fluctuations with autonomic dysregulation, monitor closely. Will hold on initiating blood pressure medications at this time. Plan Diet: regular GI Prophylaxis: not currently indicated DVT Prophylaxis: low risk IV fluids: none Lines/Tubes: peripheral IV Code Status: full code Quality If No VTE Prophylaxis Answer both mechanical and pharmacologic: Reason no mechanical VTE proph: low risk/not indicated Reason no pharmacologic proph: low risk/not indicated Hospitalist MIPS Advance Care Plan I have confirmed that the patient's Advanced Care Plan is present, code status is documented, or surrogate decision maker is listed in patient medical record.: Yes Medication Reconciliation I have utilized all available resources to obtain, update and review the patients current medications (includes all prescriptions, OTC, herbals, cannabis, and nutritional supplements).: Yes
[2025-04-27 20:44] LABS: Hemoglobin A1C 4.8 % (<5.7)
[2025-04-27 21:37] LABS: Folic Acid 8.6 ng/mL (2.76->20)
[2025-04-27 22:39] LABS: Vitamin D 25 Hydroxy < 12.8 ng/mL
[2025-04-28 04:55] LABS: Basophils Percent Auto 0.4 % (0.2-1.2); Eosinophils Absolute Auto 0.2 K/mm3 (0-0.3); Eosinophils Percent Auto 2.9 % (0-4.4); Hematocrit 46.8 % (42.0-52.0); Hemoglobin 15.5 g/dL (14.0-18.0); Immature Granulocyte Absolute 0.01 K/mm3 (0.00-0.031); Immature Granulocyte Percent A 0.1 % (0-0.5); Lymphocytes Percent Auto 38.8 % (18.3-44.2); Mean Corpuscular HGB Conc 33.1 g/dl (32-36); Mean Corpuscular Hemoglobin 31.3 pg (26-34); Mean Corpuscular Volume 94.5 fl (80-100); Mean Platelet Volume 11.5 fl (7.4-10.4); Monocytes Absolute Auto 0.7 K/mm3 (0.1-0.6); Monocytes Percent Auto 9.3 % (2.6-8.5); Neutrophils Absolute Auto 3.4 K/mm3 (1.3-6.7); Neutrophils Percent Auto 48.5 % (45.5-73.1); Platelet Count Result 213 k/mm3 (150-375); Red Blood Count 4.95 M/mm3 (4.6-6.20); Red Cell Distribution Width 11.5 % (11.5-14.5)
[2025-04-28 04:57] VITALS: BP 146/83; PULSE 58; RESP 16; TEMP 36.1; O2SAT 98
[2025-04-28 05:12] LABS: Alanine Aminotransferase 80 U/L (6-50); Albumin Level 4.1 g/dL (3.5-5.1); Alkaline Phosphatase 62 U/L (38-126); Anion Gap 9 mmol/L (4-12); Aspartate Amino Transferase 44 U/L (17-59); Blood Urea Nitrogen 12 mg/dL (9-20); Calcium 9.4 mg/dL (8.4-10.2); Carbon Dioxide 23 mmol/L (22-30); Chloride 104 mmol/L (98-107); Estimated CRCL calculation 115 ml/min; Estimated Glomerular Filt Rate > 60; Glucose 93 mg/dL (65-110); Potassium 4.3 mmol/L (3.4-5.0); Sodium 136 mmol/L (137-145)
[2025-04-28 05:19] VITALS: O2SAT 98
--- NOTE | 2025-04-28 08:02 | PM.IMPN ---
Progress Note: A&P Assessment and Plan (1) Weakness generalized: Code(s): R53.1 - Weakness Status: Acute Assessment and Plan: weakness and paresthesias to bilateral upper and lower extremities with onset 2 days ago, 04/25. Onset to all extremities, did not endorse ascending or descending symptomatology No recent vaccinations. Patient had no recent symptoms but family had upper respiratory infection 2 weeks ago - neurology consulted, [place] MCCULLOUGH. 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 Spoke to Dr. Wood and ordered LP. Planning IVIG 0.4 grams/kilogram x5 days He is reporting increased shortness of breath with activity but none at rest. No wheezing. Continue to monitor bedside pulmonary function testing if necessary /indicated. Unable to order inpatient. Added incentive spirometry BP fluctuations can occur due to autonomic dysfunction, monitor - additional testing including vitamin-D, vitamin B1/B12/B6, methylmalonic acid, immunofixation serum, homocystine, A1c. Add TSH. -CSF studies: Cell count, protein, glucose, Gram stain and culture, VZV, HSV --EBV ab, Mycoplasma IgM, IgG, RVP - will hold on consultation to speech therapy at this time for swallow study, patient reports no dysphagia or choking episodes (2) Difficulty in walking: Code(s): R26.2 - Difficulty in walking, not elsewhere classified Status: Acute Assessment and Plan: - See above (3) Elevated blood pressure reading without diagnosis of hypertension: Code(s): R03.0 - Elevated blood-pressure reading, without diagnosis of hypertension Status: Acute Assessment and Plan: - initial BP 150/100, no previous diagnosis of hypertension - here for symptomatology concerning for autonomic dysfunction and Guillain-[place] syndrome. Neurology noted that there may be blood pressure fluctuations with autonomic dysregulation, monitor closely. Will hold on initiating blood pressure medications at this time. Plan Diet: regular GI Prophylaxis: not currently indicated DVT Prophylaxis: low risk IV fluids: none Lines/Tubes: peripheral IV Code Status: full code Time Spent With Patient Time: 54 minutes Subjective Date/time seen: 04/28/25 08:02 Interval history: Reports increased weakness overnight more unsteady. Tingling and numbness to hands and bilateral feet up to mid calf. Mildly weaker on the left side of his body and minimal facial droop. His also reported she had noticed left-sided weakness No shortness of breath at rest, but is reporting increased work of breathing with activity. No wheezing on exam. Spoke with respiratory therapy and PFTs are not done at this hospital inpatient. Also no way to do peak flows at bedside. Ordered incentive spirometry for monitoring, 4000 this afternoon. NIF has been [address] Wood and ordered a lumbar puncture, will likely be done today. In planning IVIG if no evidence of infection. Patient reports no recent illnesses, but his reports that she had a recent upper respiratory illness 2 weeks ago Review of Systems Review of Systems: All systems reviewed & are unremarkable except as noted in HPI and below Exam Narrative: General - Awake and alert. No acute distress Eyes - PERRLA, EOM intact ENT - No thrush, No erythema Neck - No noticeable or palpable swelling Lymph Nodes - No lymphadenopathy Cardiovascular - RRR no m/r/g, no JVD Lungs: Clear to auscultation, No wheezing, use of accessory muscles, no crackles Skin - Skin warm and dry, no wounds or rashes Abdomen - Normal bowel sounds, abdomen soft and nontender Extremities - No edema, cyanosis or clubbing Musculoskeletal - 4/5 strength, normal range of motion, no swollen or erythematous joints. Neurological ? Alert and oriented x 3, minimal left facial droop. Mild weakness bilateral legs and arms, slightly weaker on the left. Unsteady gait Psych: Normal mood and affect Objective Data Vital Signs Vital Signs: Vital Signs - 24 hr 04/27/25 11:18 04/27/25 11:24 04/27/25 13:37 Temperature 97.8 F Pulse Rate 81 88 76 Respiratory Rate 18 15 Blood Pressure 150/100 H 131/95 H Pulse Oximetry 100 98 Oxygen Delivery Room Air 04/27/25 13:37 04/27/25 14:29 04/27/25 16:02 Temperature Pulse Rate 76 79 80 Respiratory Rate 19 17 19 Blood Pressure 137/91 H 129/94 H 142/92 H Pulse Oximetry 97 98 98 Oxygen Delivery 04/27/25 17:27 04/27/25 17:44 04/27/25 20:00 Temperature 97.9 F 97.9 F Pulse Rate 81 72 Respiratory Rate 18 18 Blood Pressure 138/86 153/98 H Pulse Oximetry 97 97 Oxygen Delivery Room Air 04/27/25 20:35 04/28/25 04:57 04/28/25 05:19 Temperature 97.9 F 97 F L Pulse Rate 82 58 L Respiratory Rate 18 16 Blood Pressure 146/85 H 146/83 H Pulse Oximetry 98 98 98 Oxygen Delivery [employer] Intake/Output Intake/Output: Intake & Output 04/25/25 04/26/25 04/27/25 04/28/25 23:59 23:59 23:59 23:59 Intake Total 150 Balance 150 Meds/Results Medications: Active Medications Generic Name Dose Route Start Last Admin Trade Name Freq PRN Reason Stop Dose Admin Acetaminophen 650 mg 04/27/25 18:23 Acetaminophen 325 Mg Tablet PO Q4H PRN Mild Pain (1-3) or Fever Albuterol 1 puff 04/27/25 18:15 Albuterol Sulfate (*Sp) Aerosol 1 Puff INHALATION Q4HRT PRN shortness of breath or wheezin Hydroxyzine HCl 10 mg 04/27/25 18:15 Hydroxyzine Hcl 10 Mg Tablet PO TID PRN anxiety Loratadine 10 mg 04/27/25 18:18 Loratadine 10 Mg Tablet PO QAM PRN allergy symptoms Lorazepam 1 mg 04/27/25 19:34 Lorazepam Inj (*Crx) 2 Mg/Ml Vial IV PUSH ONCE PRN 30 mins prior MRI for anxiety Ondansetron HCl 4 mg 04/27/25 18:23 Ondansetron Inj 4 Mg/2 Ml Vial IV PUSH Q6H PRN Nausea And Vomiting Radiology Results: ITS Impressions Head CT 04/27/25 13:14 Impression: No acute intracranial hemorrhage or suspicious mass effect. Trace inflammatory sinus disease. Labs Labs: Laboratory Results - last 24 hr 04/27/25 04/27/25 04/27/25 13:45 14:31 20:10 WBC 7.2 RBC 5.05 Hgb 15.9 Hct 47.1 MCV 93.3 MCH 31.5 MCHC 33.8 RDW 11.4 L Plt Count 240 MPV 11.3 H Immature Gran % (Auto) 0.1 Neut % (Auto) 55.5 Lymph % (Auto) 32.7 [place] % (Auto) 8.2 Eos % (Auto) 3.1 Baso % (Auto) 0.4 Lymph # (Auto) 2.35 [place] # (Auto) 0.6 Eos # (Auto) 0.2 Baso # (Auto) 0.0 Abs Immat Gran (auto) 0.01 Absolute Neuts (auto) 4.0 Absolute Nucleated RBC 0.000 Nucleated RBC % 0.0 PT 12.9 INR 0.9 APTT 25.6 Sodium 137 Potassium 4.1 Chloride 103 Carbon Dioxide 27 Anion Gap 7 BUN 11 Creatinine 0.87 Estim Creat Clear Calc Not Reportable Estimated GFR > 60 Glucose 88 POC Capillary Glucose 106 H Hemoglobin A1c 4.8 Calcium 9.7 Phosphorus 3.7 Magnesium 2.0 Total Bilirubin 0.7 AST 51 ALT 87 H Alkaline Phosphatase 71 Total Creatine Kinase 96 Total Protein 8.0 Albumin 4.6 Lipase 57 Vitamin B12 280.0 Vitamin D 25-Hydroxy < 12.8 Folate 8.6 TSH (Reflex) 2.640 Urine Color Yellow Urine Appearance Clear Urine pH 6.5 Ur Specific [place] 1.013 Urine Protein Negative Urine Glucose (UA) Negative Urine Ketones Negative Ur Blood (Man) Negative Urine Nitrate Negative Urine Bilirubin Negative Urine Urobilinogen 0.2 Leukocyte Esterase Rfl Negative Urine Opiates Screen Negative Urine Methadone Screen Negative Ur Barbiturates Screen Negative Ur Phencyclidine Scrn Negative Ur Amphetamine Screen Negative U Benzodiazepines Scrn Negative Urine Cocaine Screen Negative U Cannabinoids Screen Negative Ethyl Alcohol < 10 Influenza A (RT-PCR) Negative Influenza B (RT-PCR) Negative RSV (RT-PCR) Negative SARS-CoV-2 RNA (RT-PCR) Negative 04/28/25 04:45 WBC 7.0 RBC 4.95 Hgb 15.5 Hct 46.8 MCV 94.5 MCH 31.3 MCHC 33.1 RDW 11.5 Plt Count 213 MPV 11.5 H Immature Gran % (Auto) 0.1 Neut % (Auto) 48.5 Lymph % (Auto) 38.8 [place] % (Auto) 9.3 H Eos % (Auto) 2.9 Baso % (Auto) 0.4 Lymph # (Auto) 2.70 [place] # (Auto) 0.7 H Eos # (Auto) 0.2 Baso # (Auto) 0.0 Abs Immat Gran (auto) 0.01 Absolute Neuts (auto) 3.4 Absolute Nucleated RBC 0.000 Nucleated RBC % 0.0 PT INR APTT Sodium 136 L Potassium 4.3 Chloride 104 Carbon Dioxide 23 Anion Gap 9 BUN 12 Creatinine 0.90 Estim Creat Clear Calc 115 Estimated GFR > 60 Glucose 93 POC Capillary Glucose Hemoglobin A1c Calcium 9.4 Phosphorus Magnesium Total Bilirubin 1.0 AST 44 ALT 80 H Alkaline Phosphatase 62 Total Creatine Kinase Total Protein 7.0 Albumin 4.1 Lipase Vitamin B12 Vitamin D 25-Hydroxy Folate TSH (Reflex) 3.050 Urine Color Urine Appearance Urine pH Ur Specific [place] Urine Protein Urine Glucose (UA) Urine Ketones Ur Blood (Man) Urine Nitrate Urine Bilirubin Urine Urobilinogen Leukocyte Esterase Rfl Urine Opiates Screen Urine Methadone Screen Ur Barbiturates Screen Ur Phencyclidine Scrn Ur Amphetamine Screen U Benzodiazepines Scrn Urine Cocaine Screen U Cannabinoids Screen Ethyl Alcohol Influenza A (RT-PCR) Influenza B (RT-PCR) RSV (RT-PCR) SARS-CoV-2 RNA (RT-PCR) Hospitalist MIPS Advance Care Plan I have confirmed that the patient's Advanced Care Plan is present, code status is documented, or surrogate decision maker is listed in patient medical record.: Yes Medication Reconciliation I have utilized all available resources to obtain, update and review the patients current medications (includes all prescriptions, OTC, herbals, cannabis, and nutritional supplements).: Yes
[2025-04-28] MEDS: ACETAMINOPHEN 325 MG TABLET 650 MG PO (08:04)
[2025-04-28] MEDS: LORazepam INJ (*CRX) 2 MG/ML VIAL 1 MG IV PUSH (08:58)
[2025-04-28 14:00] VITALS: BP 134/77; PULSE 84; RESP 18; O2SAT 98
[2025-04-28] MEDS: LORazepam INJ (*CRX) 2 MG/ML VIAL 0.5 MG IV PUSH (15:58)
[2025-04-28 16:05] VITALS: BP 138/93; PULSE 82; RESP 16; O2SAT 98
[2025-04-28 16:40] VITALS: BP 131/71; PULSE 75; RESP 17; O2SAT 96
[2025-04-28 17:09] LABS: Glucose CSF 63 mg/dL (40-70); Total Protein CSF 50 mg/dL (12-60)
[2025-04-28 19:00] LABS: Appearance CSF Clear (Clear); CSF source CSF; Color CSF Colorless (Colorless); Lymphocytes CSF 51 % (40-80); Monocytes CSF 5 % (15-45); Neutrophils CSF 1 % (0-6); Nucleated Cell CSF 0 /uL (0-5); Red Blood Cell CSF 2.2 (0-2)
[2025-04-28 20:29] VITALS: BP 131/86; PULSE 70; RESP 16; TEMP 36.3; O2SAT 99
[2025-04-29 05:09] VITALS: BP 123/79; PULSE 73; RESP 18; TEMP 36.2; O2SAT 97
[2025-04-29 05:39] LABS: Basophils Percent Auto 0.5 % (0.2-1.2); Eosinophils Absolute Auto 0.2 K/mm3 (0-0.3); Eosinophils Percent Auto 3.4 % (0-4.4); Hematocrit 45.1 % (42.0-52.0); Hemoglobin 15.2 g/dL (14.0-18.0); Immature Granulocyte Absolute 0.01 K/mm3 (0.00-0.031); Immature Granulocyte Percent A 0.2 % (0-0.5); Lymphocytes Absolute Auto 2.13 K/mm3 (0.9-3.2); Lymphocytes Percent Auto 32.7 % (18.3-44.2); Mean Corpuscular HGB Conc 33.7 g/dl (32-36); Mean Corpuscular Hemoglobin 31.2 pg (26-34); Mean Corpuscular Volume 92.6 fl (80-100); Mean Platelet Volume 11.7 fl (7.4-10.4); Monocytes Absolute Auto 0.6 K/mm3 (0.1-0.6); Monocytes Percent Auto 8.7 % (2.6-8.5); Neutrophils Absolute Auto 3.6 K/mm3 (1.3-6.7); Neutrophils Percent Auto 54.5 % (45.5-73.1); Platelet Count Result 216 k/mm3 (150-375); Red Blood Count 4.87 M/mm3 (4.6-6.20); Red Cell Distribution Width 11.3 % (11.5-14.5); White Blood Count 6.5 K/mm3 (4.5-10.0)
[2025-04-29 05:54] VITALS: O2SAT 97
[2025-04-29 05:55] LABS: Anion Gap 7 mmol/L (4-12); Blood Urea Nitrogen 12 mg/dL (9-20); Calcium 9.6 mg/dL (8.4-10.2); Carbon Dioxide 27 mmol/L (22-30); Chloride 103 mmol/L (98-107); Estimated CRCL calculation 116 ml/min; Estimated Glomerular Filt Rate > 60; Glucose 92 mg/dL (65-110); Sodium 137 mmol/L (137-145)
--- NOTE | 2025-04-29 07:43 | P.PNIM_ITS ---
Progress Note: A&P Assessment and Plan (1) Weakness generalized: Code(s): R53.1 - Weakness Status: Acute Assessment and Plan: weakness and paresthesias to bilateral upper and lower extremities with onset 2 days ago, 04/25. Onset to all extremities, did not endorse ascending or descending symptomatology No recent vaccinations. Patient had no recent symptoms but family had upper respiratory infection 2 weeks ago. His reports she had a sore throat. Neurology consulted, [place] MCCULLOUGH. 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 LP done 04/28. GS negative. No WBC's or organisms. No nucleated cells, protein 50, glucose 63. --Follow LP cultures, EBV, HSV, VZV --Sent serologies, EBV, Mycoplasma, CMV DNA, IgM, IgG Avidity & Ab --RVP pending. Would add on to CSF fluid if positive for rhino/enterovirus - Vitamin D undetectable, B12 low. Folate normal. Follow B1/B6, methylmalonic acid, immunofixation serum, homocystine, A1c. Add TSH. B12 was low--1 dose IM B12 then daily Vitamin D undetectable, 125mg daily (5000 units daily) Added Thiamine 500mg x3 doses. B1 lab can be unreliable Add a MVI --MRI total spine pending, called radiologist and asked for a read tonight --Pending results of MRI, planning IVIG 0.4 grams/kilogram x5 days --Follow respiratory symptoms. Reports shortness of breath with activity but none at rest. Hx asthma but no wheezing. Continue to monitor. Risk for respiratory failure if ascending --Unable to order bedside pulmonary testing inpatient. Added incentive spirometry. Can make it to 4000 but takes an effort --BP fluctuations can occur due to autonomic dysfunction, monitor - will hold on consultation to speech therapy at this time for swallow study, patient reports no dysphagia or choking episodes (2) Difficulty in walking: Code(s): R26.2 - Difficulty in walking, not elsewhere classified Status: Acute Assessment and Plan: - See above (3) Elevated blood pressure reading without diagnosis of hypertension: Code(s): R03.0 - Elevated blood-pressure reading, without diagnosis of hypertension Status: Acute Assessment and Plan: - initial BP 150/100, no previous diagnosis of hypertension. Ranging 123-148/79-90 today - here for symptomatology concerning for autonomic dysfunction and Guillain- [place] syndrome. Neurology noted that there may be blood pressure fluctuations with autonomic dysregulation, monitor closely. Will hold on initiating blood pressure medications at this time. Plan Diet: regular GI Prophylaxis: not currently indicated DVT Prophylaxis: low risk IV fluids: none Lines/Tubes: peripheral IV Code Status: full code Time Spent With Patient Time: 67 minutes Subjective Date/time seen: 04/29/25 07:50 Interval history: Exam about the same today Short of breath with activity but no wheezing. Unsteady gait MRI spine completed. Called radiologist audrey and asked for a read. Review of Systems Review of Systems: All systems reviewed & are unremarkable except as noted in HPI and below Exam Narrative: General - Awake and alert. No acute distress Eyes - PERRLA, EOM intact ENT - No thrush, No erythema Neck - No noticeable or palpable swelling Lymph Nodes - No lymphadenopathy Cardiovascular - RRR no m/r/g, no JVD Lungs: Clear to auscultation, No wheezing, use of accessory muscles, no crackles Skin - Skin warm and dry, no wounds or rashes Abdomen - Normal bowel sounds, abdomen soft and nontender Extremities - No edema, cyanosis or clubbing Musculoskeletal - 4/5 strength, normal range of motion, no swollen or erythematous joints. Neurological ? Alert and oriented x 3, minimal left facial droop. Mild weakness bilateral legs and arms, slightly weaker on the left. Unsteady gait Psych: Normal mood and affect Objective Data Vital Signs Vital Signs: Vital Signs - 24 hr 04/28/25 14:00 04/28/25 16:05 04/28/25 16:40 Temperature Pulse Rate 84 82 75 Respiratory Rate 18 16 17 Blood Pressure 134/77 138/93 H 131/71 Pulse Oximetry 98 98 96 Oxygen Delivery 04/28/25 20:29 04/29/25 05:09 04/29/25 05:54 Temperature 97.4 F L 97.2 F L Pulse Rate 70 73 Respiratory Rate 16 18 Blood Pressure 131/86 123/79 Pulse Oximetry 99 97 97 Oxygen Delivery Room Air Intake/Output Intake/Output: Intake & Output 04/26/25 04/27/25 04/28/25 04/29/25 23:59 23:59 23:59 23:59 Intake Total 830 250 Balance 830 250 Meds/Results Medications: Active Medications Generic Name Dose Route Start Last Admin Trade Name Freq PRN Reason Stop Dose Admin Acetaminophen 650 mg 04/27/25 18:23 04/28/25 08:04 Acetaminophen 325 Mg Tablet PO 650 mg Q4H PRN Administration Mild Pain (1-3) or Fever Albuterol 1 puff 04/27/25 18:15 Albuterol Sulfate (*Sp) Aerosol 1 Puff INHALATION Q4HRT PRN shortness of breath or wheezin Hydroxyzine HCl 10 mg 04/27/25 18:15 Hydroxyzine Hcl 10 Mg Tablet PO TID PRN anxiety Loratadine 10 mg 04/27/25 18:18 Loratadine 10 Mg Tablet PO QAM PRN allergy symptoms Ondansetron HCl 4 mg 04/27/25 18:23 Ondansetron Inj 4 Mg/2 Ml Vial IV PUSH Q6H PRN Nausea And Vomiting Radiology Results: ITS Impressions Head CT 04/27/25 13:14 Impression: No acute intracranial hemorrhage or suspicious mass effect. Trace inflammatory sinus disease. Brain MRI 04/28/25 11:13 IMPRESSION: No significant abnormality. Lumbar Puncture Fluoroscopy 04/28/25 17:25 IMPRESSION: 1. Successful fluoro-guided lumbar puncture with normal opening pressure of 16 cm water. Labs Labs: Laboratory Results - last 24 hr 04/28/25 04/29/25 16:33 05:06 WBC 6.5 RBC 4.87 Hgb 15.2 Hct 45.1 MCV 92.6 MCH 31.2 MCHC 33.7 RDW 11.3 L Plt Count 216 MPV 11.7 H Immature Gran % (Auto) 0.2 Neut % (Auto) 54.5 Lymph % (Auto) 32.7 [place] % (Auto) 8.7 H Eos % (Auto) 3.4 Baso % (Auto) 0.5 Lymph # (Auto) 2.13 [place] # (Auto) 0.6 Eos # (Auto) 0.2 Baso # (Auto) 0.0 Abs Immat Gran (auto) 0.01 Absolute Neuts (auto) 3.6 Absolute Nucleated RBC 0.000 Nucleated RBC % 0.0 Sodium 137 Potassium 4.0 Chloride 103 Carbon Dioxide 27 Anion Gap 7 BUN 12 Creatinine 0.89 Estim Creat Clear Calc 116 Estimated GFR > 60 Glucose 92 Calcium 9.6 CSF Source Csf CSF Appearance Clear CSF Color Colorless CSF RBC 2.2 H CSF Tot Nucleated Cells 0 CSF Neutrophils 1 CSF Lymphocytes 51 CSF Monocytes 5 L CSF Glucose 63 CSF Total Protein 50 Hospitalist MIPS Advance Care Plan I have confirmed that the patient's Advanced Care Plan is present, code status is documented, or surrogate decision maker is listed in patient medical record.: Yes Medication Reconciliation I have utilized all available resources to obtain, update and review the patients current medications (includes all prescriptions, OTC, herbals, cannabis, and nutritional supplements).: Yes
[2025-04-29] MEDS: ACETAMINOPHEN 325 MG TABLET 650 MG PO (07:50)
[2025-04-29 08:00] VITALS: O2SAT 97
[2025-04-29] MEDS: ONDANSETRON INJ 4 MG/2 ML VIAL IV PUSH (08:56)
[2025-04-29 13:47] VITALS: BP 148/90; PULSE 92; RESP 16; TEMP 36.6; O2SAT 97
[2025-04-29] MEDS: LORazepam INJ (*CRX) 2 MG/ML VIAL 1 MG IV PUSH (15:44)
--- NOTE | 2025-04-29 16:15 | PCRCNOTE ---
Patient in procedure when I went to do the NIF.
[2025-04-29] MEDS: THIAMINE HCL INJ 500 MG in SODIUM CHLORIDE 0.9% IV 100 ML 208 MG IVPB (20:32)
[2025-04-29] MEDS: CYANOCOBALAMIN INJ 1,000 MCG/ML VIAL 1000 MCG IM (20:32)
[2025-04-29 20:48] VITALS: PULSE 80; O2SAT 97
[2025-04-29 22:00] VITALS: BP 142/87; PULSE 75; RESP 18; TEMP 36.8; O2SAT 96
[2025-04-30] MEDS: THIAMINE HCL INJ 500 MG in SODIUM CHLORIDE 0.9% IV 100 ML 208 MG IVPB ×2 (04:08→12:50)
[2025-04-30 06:00] VITALS: BP 119/78; PULSE 68; RESP 18; TEMP 36.4; O2SAT 95
[2025-04-30 08:00] VITALS: O2SAT 95
--- NOTE | 2025-04-30 08:31 | PM.IMPN ---
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 Started on IV immunoglobulin for 5 days weakness and paresthesias to bilateral upper and lower extremities with onset 2 days ago, 04/25. Onset to all extremities, did not endorse ascending or descending symptomatology No recent vaccinations. Patient had no recent symptoms but family had upper respiratory infection 2 weeks ago. His reports she had a sore throat. Neurology consulted, [place] MCCULLOUGH. 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 LP done 04/28. GS negative. No WBC's or organisms. No nucleated cells, protein 50, glucose 63. --Follow LP cultures, EBV, HSV, VZV --Sent serologies, EBV, Mycoplasma, CMV DNA, IgM, IgG Avidity & Ab --RVP pending. Would add on to CSF fluid if positive for rhino/enterovirus - Vitamin D undetectable, B12 low. Folate normal. Follow B1/B6, methylmalonic acid, immunofixation serum, homocystine, A1c. Add TSH. B12 was low--1 dose IM B12 then daily Vitamin D undetectable, 125mg daily (5000 units daily) Added Thiamine 500mg x3 doses. B1 lab can be unreliable Add a MVI --MRI total spine pending, called radiologist and asked for a read tonight --Pending results of MRI, planning IVIG 0.4 grams/kilogram x5 days --Follow respiratory symptoms. Reports shortness of breath with activity but none at rest. Hx asthma but no wheezing. Continue to monitor. Risk for respiratory failure if ascending --Unable to order bedside pulmonary testing inpatient. Added incentive spirometry. Can make it to 4000 but takes an effort --BP fluctuations can occur due to autonomic dysfunction, monitor - will hold on consultation to speech therapy at this time for swallow study, patient reports no dysphagia or choking episodes (2) Difficulty in walking: Code(s): R26.2 - Difficulty in walking, not elsewhere classified Status: Acute Assessment and Plan: - See above (3) Elevated blood pressure reading without diagnosis of hypertension: Code(s): R03.0 - Elevated blood-pressure reading, without diagnosis of hypertension Status: Acute Assessment and Plan: - initial BP 150/100, no previous diagnosis of hypertension. Ranging 123-148/79-90 today - here for symptomatology concerning for autonomic dysfunction and Guillain-[place] syndrome. Neurology noted that there may be blood pressure fluctuations with autonomic dysregulation, monitor closely. Will hold on initiating blood pressure medications at this time. Plan Diet: regular GI Prophylaxis: not currently indicated DVT Prophylaxis: low risk IV fluids: none Lines/Tubes: peripheral IV Code Status: full code Subjective Date/time seen: 04/30/25 08:31 Interval history: Discussed with neurology and started IV immunoglobulin Review of Systems Review of Systems: All systems reviewed & are unremarkable except as noted in HPI and below Exam Narrative: General - Awake and alert. No acute distress Eyes - PERRLA, EOM intact ENT - No thrush, No erythema Neck - No noticeable or palpable swelling Lymph Nodes - No lymphadenopathy Cardiovascular - RRR no m/r/g, no JVD Lungs: Clear to auscultation, No wheezing, use of accessory muscles, no crackles Skin - Skin warm and dry, no wounds or rashes Abdomen - Normal bowel sounds, abdomen soft and nontender Extremities - No edema, cyanosis or clubbing Musculoskeletal - 4/5 strength, normal range of motion, no swollen or erythematous joints. Neurological ? Alert and oriented x 3, minimal left facial droop. Mild weakness bilateral legs and arms, slightly weaker on the left. Unsteady gait Psych: Normal mood and affect Const: General: comfortable and no acute distress Other: , male, nontoxic appearance HENMT: Face/Nose/Sinus: Normal nares present Mouth: Yes moist mucous membranes Eyes: General: appearance normal, both eyes and all related structures Sclera: sclerae normal Pupils: Equal, round and reactive pupils present EOM: EOMs intact bilaterally Resp: Effort & Inspection: normal respiratory effort Auscultation: clear to auscultation bilaterally Cardio: Rate: regular rate Rhythm: regular rhythm Other: S1-S2 present without murmur, rub, ectopy GI: Other: Abdomen soft, nondistended, nontender. Normoactive bowel sounds in all quadrants. Skin: General skin exam: normal color and no rashes or lesions noted Wounds: no wounds Neuro: Cranial nerves: Yes Equal, round and reactive pupils present Speech: normal speech Other: Paresthesias/sensory loss below the knee bilaterally. Mild weakness noted to lower extremities, symmetric. DTR absent in knees and ankles. Gait affected. Extrem: General: normal to inspection Psych: Mental Status: mental status grossly normal Affect: normal affect Other: Good insight and judgment, very pleasant Objective Data Vital Signs Vital Signs: Vital Signs - 24 hr 04/29/25 13:47 04/29/25 20:00 04/29/25 20:48 Temperature 97.8 F Pulse Rate 92 80 Respiratory Rate 16 Blood Pressure 148/90 H Pulse Oximetry 97 97 Oxygen Delivery Room Air Room Air Fraction of Inspired Oxygen 21 04/29/25 22:00 04/30/25 06:00 Temperature 98.3 F 97.5 F L Pulse Rate 75 68 Respiratory Rate 18 18 Blood Pressure 142/87 H 119/78 Pulse Oximetry 96 95 Oxygen Delivery Fraction of Inspired Oxygen Intake/Output Intake/Output: Intake & Output 04/27/25 04/28/25 04/29/25 04/30/25 23:59 23:59 23:59 23:59 Intake Total 830 1075 Balance 830 1075 Meds/Results Medications: Active Medications Generic Name Dose Route Start Last Admin Trade Name Freq PRN Reason Stop Dose Admin Acetaminophen 650 mg 04/27/25 18:23 04/29/25 07:50 Acetaminophen 325 Mg Tablet PO 650 mg Q4H PRN Administration Mild Pain (1-3) or Fever Albuterol 1 puff 04/27/25 18:15 Albuterol Sulfate (*Sp) Aerosol 1 Puff INHALATION Q4HRT PRN shortness of breath or wheezin Cyanocobalamin 1,000 mcg 04/30/25 09:00 Cyanocobalamin 1,000 Mcg Tablet PO QAM MARK Hydroxyzine HCl 10 mg 04/27/25 18:15 Hydroxyzine Hcl 10 Mg Tablet PO TID PRN anxiety Thiamine HCl 500 mg/ Sodium 105 mls @ 208 mls/hr 04/29/25 20:00 04/30/25 04:08 Chloride IVPB 04/30/25 12:31 208 mls/hr Q8H MARK Administration Loratadine 10 mg 04/27/25 18:18 Loratadine 10 Mg Tablet PO QAM PRN allergy symptoms Ondansetron HCl 4 mg 04/27/25 18:23 04/29/25 08:56 Ondansetron Inj 4 Mg/2 Ml Vial IV PUSH 4 mg Q6H PRN Administration Nausea And Vomiting Vitamin D 125 mcg 06/01/25 09:00 Cholecalciferol (Vitamin D3) 125 Mcg (5,000 Units) Tablet PO DAILY MARK Radiology Results: ITS Impressions Head CT 04/27/25 13:14 Impression: No acute intracranial hemorrhage or suspicious mass effect. Trace inflammatory sinus disease. Brain MRI 04/28/25 11:13 IMPRESSION: No significant abnormality. Lumbar Puncture Fluoroscopy 04/28/25 17:25 IMPRESSION: 1. Successful fluoro-guided lumbar puncture with normal opening pressure of 16 cm water. Cervical Spine MRI 04/29/25 22:20 IMPRESSION: 1. No definite bone abnormality. 2. No evidence of spinal canal stenosis or significant disc disease. 3. Enhancement in the intervertebral foramina is seen at multiple levels which may indicate enhancement in the nerve roots. Clinical correlation and follow-up advised. Lumbar Spine MRI 04/29/25 22:53 IMPRESSION: 1. 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 Clinical correlation and follow-up advised. Thoracic Spine MRI 04/29/25 23:05 IMPRESSION: No compression fracture or significant stenosis of the thoracic spine. 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
[2025-04-30] MEDS: CHOLECALCIFEROL (VITAMIN D3) 125 MCG (5,000 UNITS) TABLET PO (09:03)
[2025-04-30] MEDS: CYANOCOBALAMIN 1,000 MCG TABLET 1000 MCG PO (09:03)
[2025-04-30 14:00] VITALS: BP 142/83; PULSE 88; RESP 16; O2SAT 96
[2025-04-30] MEDS: ACETAMINOPHEN 325 MG TABLET 650 MG PO (15:43)
[2025-04-30] MEDS: IMMUNE GLOBULIN IVPB (17:30)
[2025-04-30] MEDS: PREMIXIV IVPB (17:30)
[2025-04-30 17:57] LABS: Immunofixation, Serum Normal pattern.
[2025-04-30 20:32] VITALS: PULSE 69; RESP 20; O2SAT 97
[2025-04-30 22:00] VITALS: BP 140/66; PULSE 77; RESP 18; TEMP 36.8; O2SAT 96
[2025-05-01 05:38] LABS: Mean Corpuscular HGB Conc 33.3 g/dl (32-36); Mean Corpuscular Hemoglobin 31.4 pg (26-34); Mean Corpuscular Volume 94.3 fl (80-100); Mean Platelet Volume 11.8 fl (7.4-10.4); Platelet Count Result 195 k/mm3 (150-375); Red Blood Count 4.77 M/mm3 (4.6-6.20); Red Cell Distribution Width 11.4 % (11.5-14.5); White Blood Count 5.2 K/mm3 (4.5-10.0)
[2025-05-01 05:50] LABS: Alanine Aminotransferase 66 U/L (6-50); Albumin Level 4.2 g/dL (3.5-5.1); Alkaline Phosphatase 60 U/L (38-126); Anion Gap 8 mmol/L (4-12); Aspartate Amino Transferase 35 U/L (17-59); Bilirubin,Total 0.6 mg/dL (0.2-1.3); Blood Urea Nitrogen 13 mg/dL (9-20); Calcium 9.5 mg/dL (8.4-10.2); Carbon Dioxide 29 mmol/L (22-30); Chloride 101 mmol/L (98-107); Estimated CRCL calculation 110 ml/min; Estimated Glomerular Filt Rate > 60; Glucose 87 mg/dL (65-110); Potassium 3.9 mmol/L (3.4-5.0); Sodium 138 mmol/L (137-145)
[2025-05-01 06:00] VITALS: BP 136/89; PULSE 63; RESP 18; TEMP 36.4; O2SAT 100
[2025-05-01 08:10] VITALS: O2SAT 99
[2025-05-01] MEDS: CYANOCOBALAMIN 1,000 MCG TABLET 1000 MCG PO (08:29)
[2025-05-01] MEDS: CHOLECALCIFEROL (VITAMIN D3) 125 MCG (5,000 UNITS) TABLET PO (08:29)
[2025-05-01 08:32] VITALS: RESP 18; O2SAT 99
[2025-05-01 09:38] LABS: Methylmalonic Acid 135 nmol/L (55-335)
--- NOTE | 2025-05-01 10:14 | PM.IMPN ---
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 Started on IV immunoglobulin for 5 days weakness and paresthesias to bilateral upper and lower extremities with onset 2 days ago, 04/25. Onset to all extremities, did not endorse ascending or descending symptomatology No recent vaccinations. Patient had no recent symptoms but family had upper respiratory infection 2 weeks ago. His reports she had a sore throat. Neurology consulted, Israel MCCULLOUGH. 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 LP done 04/28. GS negative. No WBC's or organisms. No nucleated cells, protein 50, glucose 63. --Follow LP cultures, EBV, HSV, VZV --Sent serologies, EBV, Mycoplasma, CMV DNA, IgM, IgG Avidity & Ab --RVP pending. Would add on to CSF fluid if positive for rhino/enterovirus - Vitamin D undetectable, B12 low. Folate normal. Follow B1/B6, methylmalonic acid, immunofixation serum, homocystine, A1c. Add TSH. B12 was low--1 dose IM B12 then daily Vitamin D undetectable, 125mg daily (5000 units daily) Added Thiamine 500mg x3 doses. B1 lab can be unreliable Add a MVI --MRI total spine pending, called radiologist and asked for a read tonight --Pending results of MRI, planning IVIG 0.4 grams/kilogram x5 days --Follow respiratory symptoms. Reports shortness of breath with activity but none at rest. Hx asthma but no wheezing. Continue to monitor. Risk for respiratory failure if ascending --Unable to order bedside pulmonary testing inpatient. Added incentive spirometry. Can make it to 4000 but takes an effort --BP fluctuations can occur due to autonomic dysfunction, monitor - will hold on consultation to speech therapy at this time for swallow study, patient reports no dysphagia or choking episodes (2) Difficulty in walking: Code(s): R26.2 - Difficulty in walking, not elsewhere classified Status: Acute Assessment and Plan: - See above (3) Elevated blood pressure reading without diagnosis of hypertension: Code(s): R03.0 - Elevated blood-pressure reading, without diagnosis of hypertension Status: Acute Assessment and Plan: - initial BP 150/100, no previous diagnosis of hypertension. Ranging 123-148/79-90 today - here for symptomatology concerning for autonomic dysfunction and Guillain-[place] syndrome. Neurology noted that there may be blood pressure fluctuations with autonomic dysregulation, monitor closely. Will hold on initiating blood pressure medications at this time. Plan Diet: regular GI Prophylaxis: not currently indicated DVT Prophylaxis: low risk IV fluids: none Lines/Tubes: peripheral IV Code Status: full code Subjective Date/time seen: 05/01/25 10:14 Interval history: Continue to monitor respiratory status. IV immunoglobin until 0 60 6 Review of Systems Review of Systems: All systems reviewed & are unremarkable except as noted in HPI and below Exam Narrative: General - Awake and alert. No acute distress Eyes - PERRLA, EOM intact ENT - No thrush, No erythema Neck - No noticeable or palpable swelling Lymph Nodes - No lymphadenopathy Cardiovascular - RRR no m/r/g, no JVD Lungs: Clear to auscultation, No wheezing, use of accessory muscles, no crackles Skin - Skin warm and dry, no wounds or rashes Abdomen - Normal bowel sounds, abdomen soft and nontender Extremities - No edema, cyanosis or clubbing Musculoskeletal - 4/5 strength, normal range of motion, no swollen or erythematous joints. Neurological ? Alert and oriented x 3, minimal left facial droop. Mild weakness bilateral legs and arms, slightly weaker on the left. Unsteady gait Psych: Normal mood and affect Const: General: comfortable and no acute distress Other: , male, nontoxic appearance HENMT: Face/Nose/Sinus: Normal nares present Mouth: Yes moist mucous membranes Eyes: General: appearance normal, both eyes and all related structures Sclera: sclerae normal Pupils: Equal, round and reactive pupils present EOM: EOMs intact bilaterally Resp: Effort & Inspection: normal respiratory effort Auscultation: clear to auscultation bilaterally Cardio: Rate: regular rate Rhythm: regular rhythm Other: S1-S2 present without murmur, rub, ectopy GI: Other: Abdomen soft, nondistended, nontender. Normoactive bowel sounds in all quadrants. Skin: General skin exam: normal color and no rashes or lesions noted Wounds: no wounds Neuro: Cranial nerves: Yes Equal, round and reactive pupils present Speech: normal speech Other: Paresthesias/sensory loss below the knee bilaterally. Mild weakness noted to lower extremities, symmetric. DTR absent in knees and ankles. Gait affected. Extrem: General: normal to inspection Psych: Mental Status: mental status grossly normal Affect: normal affect Other: Good insight and judgment, very pleasant Objective Data Vital Signs Vital Signs: Vital Signs - 24 hr 04/30/25 14:00 04/30/25 20:00 04/30/25 20:32 Temperature Pulse Rate 88 69 Respiratory Rate 16 20 Blood Pressure 142/83 H Pulse Oximetry 96 97 Oxygen Delivery Room Air Room Air Fraction of Inspired Oxygen 21 04/30/25 22:00 05/01/25 06:00 05/01/25 08:10 Temperature 98.2 F 97.6 F Pulse Rate 77 63 Respiratory Rate 18 18 Blood Pressure 140/66 136/89 Pulse Oximetry 96 100 99 Oxygen Delivery Room Air Fraction of Inspired Oxygen 21 05/01/25 08:32 Temperature Pulse Rate Respiratory Rate 18 Blood Pressure Pulse Oximetry 99 Oxygen Delivery Room Air Fraction of Inspired Oxygen Intake/Output Intake/Output: Intake & Output 04/28/25 04/29/25 04/30/25 05/01/25 23:59 23:59 23:59 23:59 Intake Total 830 1075 1375 0 Balance 830 1075 1375 0 Meds/Results Medications: Active Medications Generic Name Dose Route Start Last Admin Trade Name Freq PRN Reason Stop Dose Admin Acetaminophen 650 mg 04/27/25 18:23 04/30/25 15:43 Acetaminophen 325 Mg Tablet PO 650 mg Q4H PRN Administration Mild Pain (1-3) or Fever Albuterol 1 puff 04/27/25 18:15 Albuterol Sulfate (*Sp) Aerosol 1 Puff INHALATION Q4HRT PRN shortness of breath or wheezin Cyanocobalamin 1,000 mcg 04/30/25 09:00 05/01/25 08:29 Cyanocobalamin 1,000 Mcg Tablet PO 1,000 mcg QAM MARK Administration Hydroxyzine HCl 10 mg 04/27/25 18:15 Hydroxyzine Hcl 10 Mg Tablet PO TID PRN anxiety Immune Globulin 40 gm/ N/A 400 mls @ 20 mls/hr 04/30/25 17:00 04/30/25 17:30 IVPB 05/05/25 12:59 20 mls/hr Q24H MARK Administration Loratadine 10 mg 04/27/25 18:18 Loratadine 10 Mg Tablet PO QAM PRN allergy symptoms Ondansetron HCl 4 mg 04/27/25 18:23 04/29/25 08:56 Ondansetron Inj 4 Mg/2 Ml Vial IV PUSH 4 mg Q6H PRN Administration Nausea And Vomiting Vitamin D 125 mcg 04/30/25 09:00 05/01/25 08:29 Cholecalciferol (Vitamin D3) 125 Mcg (5,000 Units) Tablet PO 125 mcg DAILY MARK Administration Radiology Results: ITS Impressions Head CT 04/27/25 13:14 Impression: No acute intracranial hemorrhage or suspicious mass effect. Trace inflammatory sinus disease. Brain MRI 04/28/25 11:13 IMPRESSION: No significant abnormality. Lumbar Puncture Fluoroscopy 04/28/25 17:25 IMPRESSION: 1. Successful fluoro-guided lumbar puncture with normal opening pressure of 16 cm water. Cervical Spine MRI 04/29/25 22:20 IMPRESSION: 1. No definite bone abnormality. 2. No evidence of spinal canal stenosis or significant disc disease. 3. Enhancement in the intervertebral foramina is seen at multiple levels which may indicate enhancement in the nerve roots. Clinical correlation and follow-up advised. Lumbar Spine MRI 04/29/25 22:53 IMPRESSION: 1. 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 Clinical correlation and follow-up advised. Thoracic Spine MRI 04/29/25 23:05 IMPRESSION: No compression fracture or significant stenosis of the thoracic spine. Enhancement in the nerve roots is seen at multiple levels which may indicate GBS Labs Labs: Laboratory Results - last 24 hr 04/27/25 05/01/25 20:10 04:52 WBC 5.2 RBC 4.77 Hgb 15.0 Hct 45.0 MCV 94.3 MCH 31.4 MCHC 33.3 RDW 11.4 L Plt Count 195 MPV 11.8 H Sodium 138 Potassium 3.9 Chloride 101 Carbon Dioxide 29 Anion Gap 8 BUN 13 Creatinine 0.95 Estim Creat Clear Calc 110 Estimated GFR > 60 Glucose 87 Calcium 9.5 Total Bilirubin 0.6 AST 35 ALT 66 H Alkaline Phosphatase 60 Total Protein 8.0 Albumin 4.2 Methylmalonic Acid 135 Serum Immunofixation Normal pattern. Hospitalist [facility] Advance Care Plan I have confirmed that the patient's Advanced Care Plan is present, code status is documented, or surrogate decision maker is listed in patient medical record.: Yes Medication Reconciliation I have utilized all available resources to obtain, update and review the patients current medications (includes all prescriptions, OTC, herbals, cannabis, and nutritional supplements).: Yes
[2025-05-01 14:00] VITALS: BP 143/81; PULSE 69; RESP 16; TEMP 36.6; O2SAT 98
[2025-05-01 14:18] LABS: Vitamin B1 14 nmol/L (8-30)
[2025-05-01] MEDS: ACETAMINOPHEN 325 MG TABLET 650 MG PO (15:00)
[2025-05-01 15:43] LABS: Homocysteine 10.7 umol/L (< or = 12.9)
[2025-05-01 16:03] LABS: VZV DNA, QL PCR Not Detected (Not Detected); Varicella Zoster Source Blood
[2025-05-01] MEDS: IMMUNE GLOBULIN IVPB (16:49)
[2025-05-01] MEDS: PREMIXIV IVPB (16:49)
[2025-05-01 16:53] LABS: Vitamin B6 17.2 ng/mL (2.1-21.7)
[2025-05-01 17:03] LABS: EBV Nuclear Ab Antibody <18.00 U/mL; EBV Virus Capsid Ag IgG Ab <18.00 U/mL; EBV Virus Capsid Ag IgM Ab <36.00 U/mL
--- NOTE | 2025-05-01 17:05 | WPDNEUROPN ---
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 Subjective Date/time seen: 05/01/25 17:05 Interval history: Kayode had difficulty with walking and balance. Over the last 3 days while I was away I still state in touch with the hospitalist and patient via phone. His MRI of the brain did not show any abnormalities. MRI of the spine shows enhancement at the level of nerve roots in both cervical and Lumbar spine. Spinal tap has shown protein was 50 but no cells were seen. 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 He started with IVIG last night at a rate of 0.4 grams/kilos body weight. He seems to tolerating it very well. Review of Systems Review of Systems: All systems reviewed & are unremarkable except as noted in HPI and below Exam Const: General: cooperative, well developed and alert Orientation/consciousness: patient oriented x3 HENMT: Head: atraumatic Eyes: Alignment and Position: position normal EOM: EOMs intact bilaterally Resp: Effort & Inspection: normal respiratory effort Neuro: General: patient oriented x3 Cranial nerves: Yes CN's II-XII intact bilaterally, Yes facial sensation intact/muscles of mastication intact, Yes Equal, round and reactive pupils present, Yes facial symmetry and Yes Midline tongue present Cognition (Neuro): normal cognition Speech: normal speech Motor exam (neuro): 5/5 motor strength present throughout Coordination: [id number] test normal and Normal rapid alternating movements of the distal upper extremity present (Neuro) Objective Data Vital Signs Vital Signs: Vital Signs - 24 hr 04/30/25 20:00 04/30/25 20:32 04/30/25 22:00 Temperature 98.2 F Pulse Rate 69 77 Respiratory Rate 20 18 Blood Pressure 140/66 Pulse Oximetry 97 96 Oxygen Delivery Room Air Room Air Fraction of Inspired Oxygen 05/01/25 06:00 05/01/25 08:10 05/01/25 08:32 Temperature 97.6 F Pulse Rate 63 Respiratory Rate 18 18 Blood Pressure 136/89 Pulse Oximetry 100 99 99 Oxygen Delivery Room Air Room Air Fraction of Inspired Oxygen 05/01/25 14:00 Temperature 97.8 F Pulse Rate 69 Respiratory Rate 16 Blood Pressure 143/81 H Pulse Oximetry 98 Oxygen Delivery Fraction of Inspired Oxygen Intake/Output Intake/Output: Intake & Output 04/28/25 04/29/25 04/30/25 05/01/25 23:59 23:59 23:59 23:59 Intake Total 830 1075 1375 640 Balance 830 1075 1375 640 Meds/Results Medications: Active Medications Generic Name Dose Route Start Last Admin Trade Name Freq PRN Reason Stop Dose Admin Acetaminophen 650 mg 04/27/25 18:23 05/01/25 15:00 Acetaminophen 325 Mg Tablet PO 650 mg Q4H PRN Administration Mild Pain (1-3) or Fever Albuterol 1 puff 04/27/25 18:15 Albuterol Sulfate (*Sp) Aerosol 1 Puff INHALATION Q4HRT PRN shortness of breath or wheezin Cyanocobalamin 1,000 mcg 04/30/25 09:00 05/01/25 08:29 Cyanocobalamin 1,000 Mcg Tablet PO 1,000 mcg QAM MARK Administration Hydroxyzine HCl 10 mg 04/27/25 18:15 Hydroxyzine Hcl 10 Mg Tablet PO TID PRN anxiety Immune Globulin 40 gm/ N/A 400 mls @ 20 mls/hr 04/30/25 17:00 05/01/25 16:49 IVPB 05/05/25 12:59 20 mls/hr Q24H MARK Administration Loratadine 10 mg 04/27/25 18:18 Loratadine 10 Mg Tablet PO QAM PRN allergy symptoms Ondansetron HCl 4 mg 04/27/25 18:23 04/29/25 08:56 Ondansetron Inj 4 Mg/2 Ml Vial IV PUSH 4 mg Q6H PRN Administration Nausea And Vomiting Vitamin D 125 mcg 04/30/25 09:00 05/01/25 08:29 Cholecalciferol (Vitamin D3) 125 Mcg (5,000 Units) Tablet PO 125 mcg DAILY MARK Administration Radiology Results: ITS Impressions Head CT 04/27/25 13:14 Impression: No acute intracranial hemorrhage or suspicious mass effect. Trace inflammatory sinus disease. Brain MRI 04/28/25 11:13 IMPRESSION: No significant abnormality. Lumbar Puncture Fluoroscopy 04/28/25 17:25 IMPRESSION: 1. Successful fluoro-guided lumbar puncture with normal opening pressure of 16 cm water. Cervical Spine MRI 04/29/25 22:20 IMPRESSION: 1. No definite bone abnormality. 2. No evidence of spinal canal stenosis or significant disc disease. 3. Enhancement in the intervertebral foramina is seen at multiple levels which may indicate enhancement in the nerve roots. Clinical correlation and follow-up advised. Lumbar Spine MRI 04/29/25 22:53 IMPRESSION: 1. 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 Clinical correlation and follow-up advised. Thoracic Spine MRI 04/29/25 23:05 IMPRESSION: No compression fracture or significant stenosis of the thoracic spine. Enhancement in the nerve roots is seen at multiple levels which may indicate GBS Labs Labs: Laboratory Results - last 24 hr 04/27/25 04/28/25 04/29/25 20:10 16:33 05:06 WBC RBC Hgb Hct MCV MCH MCHC RDW Plt Count MPV Sodium Potassium Chloride Carbon Dioxide Anion Gap BUN Creatinine Estim Creat Clear Calc Estimated GFR Glucose Calcium Total Bilirubin AST ALT Alkaline Phosphatase Total Protein Albumin Vitamin B1 14 Vitamin B6 17.2 Methylmalonic Acid 135 Homocysteine 10.7 CSF VZV DNA (PCR) Not detected Serum Immunofixation Normal pattern. EBV Capsid Ag IgG Ab <18.00 EBV Capsid Ag IgM Ab <36.00 EBV Nucl Ag IgG Sig Str <18.00 EBV Nuc Ag IgG Interp VZV (PCR) Source Blood 05/01/25 04:52 WBC 5.2 RBC 4.77 Hgb 15.0 Hct 45.0 MCV 94.3 MCH 31.4 MCHC 33.3 RDW 11.4 L Plt Count 195 MPV 11.8 H Sodium 138 Potassium 3.9 Chloride 101 Carbon Dioxide 29 Anion Gap 8 BUN 13 Creatinine 0.95 Estim Creat Clear Calc 110 Estimated GFR > 60 Glucose 87 Calcium 9.5 Total Bilirubin 0.6 AST 35 ALT 66 H Alkaline Phosphatase 60 Total Protein 8.0 Albumin 4.2 Vitamin B1 Vitamin B6 Methylmalonic Acid Homocysteine CSF VZV DNA (PCR) Serum Immunofixation EBV Capsid Ag IgG Ab EBV Capsid Ag IgM Ab EBV Nucl Ag IgG Sig Str EBV Nuc Ag IgG Interp VZV (PCR) Source
[2025-05-01 20:29] VITALS: O2SAT 98
[2025-05-01 20:57] VITALS: BP 148/93; PULSE 71; RESP 16; TEMP 36.2; O2SAT 97
[2025-05-01 22:49] LABS: Epstein Barr Virus DNA PCR Not Detected (Not Detected); Source Epstein Barr Virus Results Below
[2025-05-02] MEDS: ACETAMINOPHEN 325 MG TABLET 650 MG PO ×4 (05:24→20:37)
[2025-05-02 05:27] LABS: Hematocrit 44.6 % (42.0-52.0); Hemoglobin 14.8 g/dL (14.0-18.0); Mean Corpuscular HGB Conc 33.2 g/dl (32-36); Mean Corpuscular Hemoglobin 31.1 pg (26-34); Mean Corpuscular Volume 93.7 fl (80-100); Mean Platelet Volume 11.6 fl (7.4-10.4); Platelet Count Result 191 k/mm3 (150-375); Red Blood Count 4.76 M/mm3 (4.6-6.20); Red Cell Distribution Width 11.1 % (11.5-14.5); White Blood Count 4.7 K/mm3 (4.5-10.0)
[2025-05-02 05:33] LABS: Alanine Aminotransferase 62 U/L (6-50); Albumin Level 3.9 g/dL (3.5-5.1); Alkaline Phosphatase 61 U/L (38-126); Anion Gap 6 mmol/L (4-12); Aspartate Amino Transferase 37 U/L (17-59); Bilirubin,Total 0.6 mg/dL (0.2-1.3); Blood Urea Nitrogen 13 mg/dL (9-20); Calcium 9.2 mg/dL (8.4-10.2); Carbon Dioxide 28 mmol/L (22-30); Chloride 103 mmol/L (98-107); Estimated CRCL calculation 112 ml/min; Estimated Glomerular Filt Rate > 60; Glucose 91 mg/dL (65-110); Potassium 4.2 mmol/L (3.4-5.0); Sodium 137 mmol/L (137-145)
[2025-05-02 06:00] VITALS: BP 137/88; PULSE 67; RESP 16; TEMP 36.1; O2SAT 100
[2025-05-02 07:55] VITALS: RESP 16; O2SAT 100
[2025-05-02 08:18] LABS: CMV IgM Antibody <30.00 AU/mL
[2025-05-02 09:00] LABS: CMV IgG Antibody <0.60 U/mL
[2025-05-02] MEDS: ONDANSETRON INJ 4 MG/2 ML VIAL IV PUSH ×3 (09:12→23:02)
[2025-05-02] MEDS: CYANOCOBALAMIN 1,000 MCG TABLET 1000 MCG PO (09:12)
[2025-05-02] MEDS: CHOLECALCIFEROL (VITAMIN D3) 125 MCG (5,000 UNITS) TABLET PO (09:12)
[2025-05-02] MEDS: LORATADINE 10 MG TABLET PO (09:18)
[2025-05-02] MEDS: ACETAMINOPHEN/BUTALBITAL/CAFFEINE 325-50-40 MG TABLET (FIORICET) 1 TAB PO (10:47)
[2025-05-02 14:00] VITALS: BP 129/81; PULSE 74; RESP 18; TEMP 35.7; O2SAT 99
[2025-05-02 14:59] LABS: EVB DNA,QN PCR Not Detected log IU/mL (Not Detected); Epstein Barr Virus PCR Not Detected (Not Detected)
--- NOTE | 2025-05-02 15:25 | P.PNIM_ITS ---
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 Started on IV immunoglobulin for 5 days weakness and paresthesias to bilateral upper and lower extremities with onset 2 days ago, 04/25. Onset to all extremities, did not endorse ascending or descending symptomatology No recent vaccinations. Patient had no recent symptoms but family had upper respiratory infection 2 weeks ago. His reports she had a sore throat. Neurology consulted, Israel MCCULLOUGH. 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 LP done 04/28. GS negative. No WBC's or organisms. No nucleated cells, protein 50, glucose 63. --Follow LP cultures, EBV, HSV, VZV --Sent serologies, EBV, Mycoplasma, CMV DNA, IgM, IgG Avidity & Ab --RVP pending. Would add on to CSF fluid if positive for rhino/enterovirus - Vitamin D undetectable, B12 low. Folate normal. Follow B1/B6, methylmalonic acid, immunofixation serum, homocystine, A1c. Add TSH. B12 was low--1 dose IM B12 then daily Vitamin D undetectable, 125mg daily (5000 units daily) Added Thiamine 500mg x3 doses. B1 lab can be unreliable Add a MVI --MRI total spine pending, called radiologist and asked for a read tonight --Pending results of MRI, planning IVIG 0.4 grams/kilogram x5 days --Follow respiratory symptoms. Reports shortness of breath with activity but none at rest. Hx asthma but no wheezing. Continue to monitor. Risk for respi ratory failure if ascending --Unable to order bedside pulmonary testing inpatient. Added incentive spirometry. Can make it to 4000 but takes an effort --BP fluctuations can occur due to autonomic dysfunction, monitor - will hold on consultation to speech therapy at this time for swallow study, patient reports no dysphagia or choking episodes (2) Difficulty in walking: Code(s): R26.2 - Difficulty in walking, not elsewhere classified Status: Acute Assessment and Plan: - See above (3) Elevated blood pressure reading without diagnosis of hypertension: Code(s): R03.0 - Elevated blood-pressure reading, without diagnosis of hypertension Status: Acute Assessment and Plan: - initial BP 150/100, no previous diagnosis of hypertension. Ranging 123-148/79-90 today - here for symptomatology concerning for autonomic dysfunction and Guillain- Alpine syndrome. Neurology noted that there may be blood pressure fluctuations with autonomic dysregulation, monitor closely. Will hold on initiating blood pressure medications at this time. Plan Diet: regular GI Prophylaxis: not currently indicated DVT Prophylaxis: low risk IV fluids: none Lines/Tubes: peripheral IV Code Status: full code Subjective Date/time seen: 05/02/25 15:25 Interval history: Patient reports of headache. Patient has hx of migraine. Received Acetaminophen and Fioricet. Still c/o of headache. At home he takes Ubrelvy Review of Systems Review of Systems: All systems reviewed & are unremarkable except as noted in HPI and below Exam Narrative: General - Awake and alert. No acute distress Eyes - PERRLA, EOM intact ENT - No thrush, No erythema Neck - No noticeable or palpable swelling Lymph Nodes - No lymphadenopathy Cardiovascular - RRR no m/r/g, no JVD Lungs: Clear to auscultation, No wheezing, use of accessory muscles, no crackles Skin - Skin warm and dry, no wounds or rashes Abdomen - Normal bowel sounds, abdomen soft and nontender Extremities - No edema, cyanosis or clubbing Musculoskeletal - 4/5 strength, normal range of motion, no swollen or erythematous joints. Neurological ? Alert and oriented x 3, minimal left facial droop. Mild weakness bilateral legs and arms, slightly weaker on the left. Unsteady gait Psych: Normal mood and affect Const: General: comfortable and no acute distress Other: , male, nontoxic appearance HENMT: Face/Nose/Sinus: Normal nares present Mouth: Yes moist mucous membranes Eyes: General: appearance normal, both eyes and all related structures Sclera: sclerae normal Pupils: Equal, round and reactive pupils present EOM: EOMs intact bilaterally Resp: Effort & Inspection: normal respiratory effort Auscultation: clear to auscultation bilaterally Cardio: Rate: regular rate Rhythm: regular rhythm Other: S1-S2 present without murmur, rub, ectopy GI: Other: Abdomen soft, nondistended, nontender. Normoactive bowel sounds in all quadrants. Skin: General skin exam: normal color and no rashes or lesions noted Wounds: no wounds Neuro: Cranial nerves: Yes Equal, round and reactive pupils present Speech: normal speech Other: Paresthesias/sensory loss below the knee bilaterally. Mild weakness noted to lower extremities, symmetric. DTR absent in knees and ankles. Gait affected. Extrem: General: normal to inspection Psych: Mental Status: mental status grossly normal Affect: normal affect Other: Good insight and judgment, very pleasant Objective Data Vital Signs Vital Signs: Vital Signs - 24 hr 05/01/25 20:29 05/01/25 20:44 05/01/25 20:57 Temperature 97.2 F L Pulse Rate 71 Respiratory Rate 16 Blood Pressure 148/93 H Pulse Oximetry 98 97 Oxygen Delivery Room Air Room Air Fraction of Inspired Oxygen 21 05/02/25 06:00 05/02/25 07:55 05/02/25 10:56 Temperature 96.9 F L Pulse Rate 67 Respiratory Rate 16 16 Blood Pressure 137/88 Pulse Oximetry 100 100 Oxygen Delivery Room Air Room Air Fraction of Inspired Oxygen 05/02/25 11:32 05/02/25 14:00 Temperature 96.3 F L Pulse Rate 74 Respiratory Rate 18 Blood Pressure 129/81 Pulse Oximetry 99 Oxygen Delivery Room Air Fraction of Inspired Oxygen Intake/Output Intake/Output: Intake & Output 04/29/25 04/30/25 05/01/25 05/02/25 23:59 23:59 23:59 23:59 Intake Total 1075 1375 1520 890 Balance 1075 1375 1520 890 Meds/Results Medications: Active Medications Generic Name Dose Route Start Last Admin Trade Name Freq PRN Reason Stop Dose Admin Acetaminophen 650 mg 04/27/25 18:23 05/02/25 13:55 Acetaminophen 325 Mg Tablet PO 650 mg Q4H PRN Administration Mild Pain (1-3) or Fever Albuterol 1 puff 04/27/25 18:15 Albuterol Sulfate (*Sp) Aerosol 1 Puff INHALATION Q4HRT PRN shortness of breath or wheezin Cyanocobalamin 1,000 mcg 04/30/25 09:00 05/02/25 09:12 Cyanocobalamin 1,000 Mcg Tablet PO 1,000 mcg QAM MARK Administration Hydroxyzine HCl 10 mg 04/27/25 18:15 Hydroxyzine Hcl 10 Mg Tablet PO TID PRN anxiety Immune Globulin 40 gm/ N/A 400 mls @ 20 mls/hr 04/30/25 17:00 05/02/25 12:10 IVPB 05/05/25 12:59 Infused Q24H MRAK Infusion Loratadine 10 mg 04/27/25 18:18 05/02/25 09:18 Loratadine 10 Mg Tablet PO 10 mg QAM PRN Administration allergy symptoms Ondansetron HCl 4 mg 04/27/25 18:23 05/02/25 09:12 Ondansetron Inj 4 Mg/2 Ml Vial IV PUSH 4 mg Q6H PRN Administration Nausea And Vomiting Vitamin D 125 mcg 04/30/25 09:00 05/02/25 09:12 Cholecalciferol (Vitamin D3) 125 Mcg (5,000 Units) Tablet PO 125 mcg DAILY MARK Administration Radiology Results: ITS Impressions Head CT 04/27/25 13:14 Impression: No acute intracranial hemorrhage or suspicious mass effect. Trace inflammatory sinus disease. Brain MRI 04/28/25 11:13 IMPRESSION: No significant abnormality. Lumbar Puncture Fluoroscopy 04/28/25 17:25 IMPRESSION: 1. Successful fluoro-guided lumbar puncture with normal opening pressure of 16 cm water. Cervical Spine MRI 04/29/25 22:20 IMPRESSION: 1. No definite bone abnormality. 2. No evidence of spinal canal stenosis or significant disc disease. 3. Enhancement in the intervertebral foramina is seen at multiple levels which may indicate enhancement in the nerve roots. Clinical correlation and follow-up advised. Lumbar Spine MRI 04/29/25 22:53 IMPRESSION: 1. 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 Clinical correlation and follow-up advised. Thoracic Spine MRI 04/29/25 23:05 IMPRESSION: No compression fracture or significant stenosis of the thoracic spine. Enhancement in the nerve roots is seen at multiple levels which may indicate GBS Labs Labs: Laboratory Results - last 24 hr 04/27/25 04/28/25 04/29/25 20:10 16:33 05:06 WBC RBC Hgb Hct MCV MCH MCHC RDW Plt Count MPV Sodium Potassium Chloride Carbon Dioxide Anion Gap BUN Creatinine Estim Creat Clear Calc Estimated GFR Glucose Calcium Total Bilirubin AST ALT Alkaline Phosphatase Total Protein Albumin Vitamin B6 17.2 Homocysteine 10.7 Fluid EBV Source Results below CSF EBV DNA (PCR) Not detected CSF VZV DNA (PCR) Not detected CMV IgG Ab CMV IgM Ab <30.00 EBV (Quant-PCR) Quant EBV Capsid Ag IgG Ab <18.00 EBV Capsid Ag IgM Ab <36.00 EBV Nucl Ag IgG Sig Str <18.00 EBV Nuc Ag IgG Interp EBV DNA Quant PCR log10 VZV (PCR) Source Blood 04/29/25 04/30/25 05/02/25 05:07 05:02 05:15 WBC 4.7 RBC 4.76 Hgb 14.8 Hct 44.6 MCV 93.7 MCH 31.1 MCHC 33.2 RDW 11.1 L Plt Count 191 MPV 11.6 H Sodium 137 Potassium 4.2 Chloride 103 Carbon Dioxide 28 Anion Gap 6 BUN 13 Creatinine 0.93 Estim Creat Clear Calc 112 Estimated GFR > 60 Glucose 91 Calcium 9.2 Total Bilirubin 0.6 AST 37 ALT 62 H Alkaline Phosphatase 61 Total Protein 8.0 Albumin 3.9 Vitamin B6 Homocysteine Fluid EBV Source CSF EBV DNA (PCR) CSF VZV DNA (PCR) CMV IgG Ab <0.60 CMV IgM Ab EBV (Quant-PCR) Quant Not detected EBV Capsid Ag IgG Ab EBV Capsid Ag IgM Ab EBV Nucl Ag IgG Sig Str EBV Nuc Ag IgG Interp EBV DNA Quant PCR log10 Not detected VZV (PCR) Source Hospitalist MIPS Advance Care Plan I have confirmed that the patient's Advanced Care Plan is present, code status is documented, or surrogate decision maker is listed in patient medical record.: Yes Medication Reconciliation I have utilized all available resources to obtain, update and review the patients current medications (includes all prescriptions, OTC, herbals, cannabis, and nutritional supplements).: Yes
[2025-05-02] MEDS: SUMAtriptan SUCCINATE 25 MG TABLET PO ×2 (16:43→17:53)
[2025-05-02 16:58] LABS: Mycoplasma IgM Antibody Titer 553 U/mL
[2025-05-02] MEDS: IMMUNE GLOBULIN IVPB (17:20)
[2025-05-02] MEDS: PREMIXIV IVPB (17:20)
[2025-05-02 20:30] VITALS: PULSE 84; RESP 18; O2SAT 96
[2025-05-02 20:41] VITALS: BP 138/78; PULSE 84; RESP 18; TEMP 37.3; O2SAT 96
[2025-05-02 21:03] LABS: Herpes Simplex Type 1 DNA PCR Not Detected (Not Detected); Herpes Simplex Type 2 DNA PCR Not Detected (Not Detected)
[2025-05-03 00:04] LABS: VDRL Quantitative CSF NON-REACTIVE
[2025-05-03 05:40] LABS: Hematocrit 43.9 % (42.0-52.0); Hemoglobin 14.8 g/dL (14.0-18.0); Mean Corpuscular HGB Conc 33.7 g/dl (32-36); Mean Corpuscular Hemoglobin 31.4 pg (26-34); Mean Corpuscular Volume 93.2 fl (80-100); Mean Platelet Volume 11.7 fl (7.4-10.4); Platelet Count Result 203 k/mm3 (150-375); Red Blood Count 4.71 M/mm3 (4.6-6.20); Red Cell Distribution Width 11.1 % (11.5-14.5); White Blood Count 7.8 K/mm3 (4.5-10.0)
[2025-05-03 05:42] VITALS: BP 140/80; PULSE 86; RESP 20; TEMP 36.5; O2SAT 95
[2025-05-03 05:47] LABS: Alanine Aminotransferase 52 U/L (6-50); Albumin Level 4.1 g/dL (3.5-5.1); Alkaline Phosphatase 68 U/L (38-126); Anion Gap 8 mmol/L (4-12); Aspartate Amino Transferase 30 U/L (17-59); Bilirubin,Total 0.7 mg/dL (0.2-1.3); Blood Urea Nitrogen 12 mg/dL (9-20); Calcium 9.3 mg/dL (8.4-10.2); Carbon Dioxide 24 mmol/L (22-30); Chloride 103 mmol/L (98-107); Estimated CRCL calculation 111 ml/min; Estimated Glomerular Filt Rate > 60; Glucose 98 mg/dL (65-110); Potassium 3.9 mmol/L (3.4-5.0); Sodium 135 mmol/L (137-145); Total Protein 8.9 g/dL (6.3-8.2)
[2025-05-03] MEDS: ACETAMINOPHEN 325 MG TABLET 650 MG PO ×2 (08:09→12:03)
[2025-05-03] MEDS: CHOLECALCIFEROL (VITAMIN D3) 125 MCG (5,000 UNITS) TABLET PO (08:10)
[2025-05-03] MEDS: CYANOCOBALAMIN 1,000 MCG TABLET 1000 MCG PO (08:10)
[2025-05-03 08:19] LABS: CMV DNA Quant PCR IU/mL Not Detected (Not Detected); Cytomegalovirus DNA Quant PCR Not Detected Log IU/mL (Not Detected)
--- NOTE | 2025-05-03 11:30 | P.PNIM_ITS ---
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 Started on IV immunoglobulin for 5 days weakness and paresthesias to bilateral upper and lower extremities with onset 2 days ago, 04/25. Onset to all extremities, did not endorse ascending or descending symptomatology No recent vaccinations. Patient had no recent symptoms but family had upper respiratory infection 2 weeks ago. His reports she had a sore throat. Neurology consulted, [place] MCCULLOUGH. 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 LP done 04/28. GS negative. No WBC's or organisms. No nucleated cells, protein 50, glucose 63. --Follow LP cultures, EBV, HSV, VZV --Sent serologies, EBV, Mycoplasma, CMV DNA, IgM, IgG Avidity & Ab --RVP pending. Would add on to CSF fluid if positive for rhino/enterovirus - Vitamin D undetectable, B12 low. Folate normal. Follow B1/B6, methylmalonic acid, immunofixation serum, homocystine, A1c. Add TSH. B12 was low--1 dose IM B12 then daily Vitamin D undetectable, 125mg daily (5000 units daily) Added Thiamine 500mg x3 doses. B1 lab can be unreliable Add a MVI --MRI total spine pending, called radiologist and asked for a read tonight --Pending results of MRI, planning IVIG 0.4 grams/kilogram x5 days --Follow respiratory symptoms. Reports shortness of breath with activity but none at rest. Hx asthma but no wheezing. Continue to monitor. Risk for respi ratory failure if ascending --Unable to order bedside pulmonary testing inpatient. Added incentive spirometry. Can make it to 4000 but takes an effort --BP fluctuations can occur due to autonomic dysfunction, monitor - will hold on consultation to speech therapy at this time for swallow study, patient reports no dysphagia or choking episodes (2) Difficulty in walking: Code(s): R26.2 - Difficulty in walking, not elsewhere classified Status: Acute Assessment and Plan: - See above (3) Elevated blood pressure reading without diagnosis of hypertension: Code(s): R03.0 - Elevated blood-pressure reading, without diagnosis of hypertension Status: Acute Assessment and Plan: - initial BP 150/100, no previous diagnosis of hypertension. Ranging 123-148/79-90 today - here for symptomatology concerning for autonomic dysfunction and Guillain- Pinedale syndrome. Neurology noted that there may be blood pressure fluctuations with autonomic dysregulation, monitor closely. Will hold on initiating blood pressure medications at this time. Plan Diet: regular GI Prophylaxis: not currently indicated DVT Prophylaxis: low risk IV fluids: none Lines/Tubes: peripheral IV Code Status: full code Subjective Date/time seen: 05/03/25 11:30 Interval history: Currently doing well. Headache is better. Review of Systems Review of Systems: All systems reviewed & are unremarkable except as noted in HPI and below Exam Narrative: General - Awake and alert. No acute distress Eyes - PERRLA, EOM intact ENT - No thrush, No erythema Neck - No noticeable or palpable swelling Lymph Nodes - No lymphadenopathy Cardiovascular - RRR no m/r/g, no JVD Lungs: Clear to auscultation, No wheezing, use of accessory muscles, no crackles Skin - Skin warm and dry, no wounds or rashes Abdomen - Normal bowel sounds, abdomen soft and nontender Extremities - No edema, cyanosis or clubbing Musculoskeletal - 4/5 strength, normal range of motion, no swollen or erythematous joints. Neurological ? Alert and oriented x 3, minimal left facial droop. Mild weakness bilateral legs and arms, slightly weaker on the left. Unsteady gait Psych: Normal mood and affect Const: General: comfortable and no acute distress Other: , male, nontoxic appearance HENMT: Face/Nose/Sinus: Normal nares present Mouth: Yes moist mucous membranes Eyes: General: appearance normal, both eyes and all related structures Sclera: sclerae normal Pupils: Equal, round and reactive pupils present EOM: EOMs intact bilaterally Resp: Effort & Inspection: normal respiratory effort Auscultation: clear to auscultation bilaterally Cardio: Rate: regular rate Rhythm: regular rhythm Other: S1-S2 present without murmur, rub, ectopy GI: Other: Abdomen soft, nondistended, nontender. Normoactive bowel sounds in all quadrants. Skin: General skin exam: normal color and no rashes or lesions noted Wounds: no wounds Neuro: Cranial nerves: Yes Equal, round and reactive pupils present Speech: normal speech Other: Paresthesias/sensory loss below the knee bilaterally. Mild weakness noted to lower extremities, symmetric. DTR absent in knees and ankles. Gait affected. Extrem: General: normal to inspection Psych: Mental Status: mental status grossly normal Affect: normal affect Other: Good insight and judgment, very pleasant Objective Data Vital Signs Vital Signs: Vital Signs - 24 hr 05/02/25 11:32 05/02/25 14:00 05/02/25 20:30 Temperature 96.3 F L Pulse Rate 74 84 Respiratory Rate 18 18 Blood Pressure 129/81 Pulse Oximetry 99 96 Oxygen Delivery Room Air Room Air Fraction of Inspired Oxygen 21 05/02/25 20:41 05/03/25 05:42 Temperature 99.1 F 97.7 F Pulse Rate 84 86 Respiratory Rate 18 20 Blood Pressure 138/78 140/80 Pulse Oximetry 96 95 Oxygen Delivery Fraction of Inspired Oxygen Intake/Output Intake/Output: Intake & Output 04/30/25 05/01/25 05/02/25 05/03/25 23:59 23:59 23:59 23:59 Intake Total 1375 1520 1910 920.0 Balance 1375 1520 1910 920.0 Meds/Results Medications: Active Medications Generic Name Dose Route Start Last Admin Trade Name Freq PRN Reason Stop Dose Admin Acetaminophen 650 mg 04/27/25 18:23 05/03/25 08:09 Acetaminophen 325 Mg Tablet PO 650 mg Q4H PRN Administration Mild Pain (1-3) or Fever Albuterol 1 puff 04/27/25 18:15 Albuterol Sulfate (*Sp) Aerosol 1 Puff INHALATION Q4HRT PRN shortness of breath or wheezin Cyanocobalamin 1,000 mcg 04/30/25 09:00 05/03/25 08:10 Cyanocobalamin 1,000 Mcg Tablet PO 1,000 mcg QAM MARK Administration Hydroxyzine HCl 10 mg 04/27/25 18:15 Hydroxyzine Hcl 10 Mg Tablet PO TID PRN anxiety Immune Globulin 40 gm/ N/A 400 mls @ 20 mls/hr 04/30/25 17:00 05/03/25 11:12 IVPB 05/05/25 12:59 Infused Q24H MARK Infusion Loratadine 10 mg 04/27/25 18:18 05/02/25 09:18 Loratadine 10 Mg Tablet PO 10 mg QAM PRN Administration allergy symptoms Ondansetron HCl 4 mg 04/27/25 18:23 06/03/25 23:02 Ondansetron Inj 4 Mg/2 Ml Vial IV PUSH 4 mg Q6H PRN Administration Nausea And Vomiting Vitamin D 125 mcg 04/30/25 09:00 05/03/25 08:10 Cholecalciferol (Vitamin D3) 125 Mcg (5,000 Units) Tablet PO 125 mcg DAILY MARK Administration Radiology Results: ITS Impressions Head CT 04/27/25 13:14 Impression: No acute intracranial hemorrhage or suspicious mass effect. Trace inflammatory sinus disease. Brain MRI 04/28/25 11:13 IMPRESSION: No significant abnormality. Lumbar Puncture Fluoroscopy 04/28/25 17:25 IMPRESSION: 1. Successful fluoro-guided lumbar puncture with normal opening pressure of 16 cm water. Cervical Spine MRI 04/29/25 22:20 IMPRESSION: 1. No definite bone abnormality. 2. No evidence of spinal canal stenosis or significant disc disease. 3. Enhancement in the intervertebral foramina is seen at multiple levels which may indicate enhancement in the nerve roots. Clinical correlation and follow-up advised. Lumbar Spine MRI 04/29/25 22:53 IMPRESSION: 1. 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 Clinical correlation and follow-up advised. Thoracic Spine MRI 04/29/25 23:05 IMPRESSION: No compression fracture or significant stenosis of the thoracic spine. Enhancement in the nerve roots is seen at multiple levels which may indicate GBS Labs Labs: Laboratory Results - last 24 hr 04/28/25 04/29/25 04/29/25 16:34 05:06 05:07 WBC RBC Hgb Hct MCV MCH MCHC RDW Plt Count MPV Sodium Potassium Chloride Carbon Dioxide Anion Gap BUN Creatinine Estim Creat Clear Calc Estimated GFR Glucose Calcium Total Bilirubin AST ALT Alkaline Phosphatase Total Protein Albumin CSF VDRL Non-reactive CSF Herpes I DNA (PCR) Not detected CSF Herpes II DNA (PCR) Not detected CMV DNA Quant PCR CMV Qnt PCR log IU/mL EBV (Quant-PCR) Quant Not detected EBV DNA Quant PCR log10 Not detected HSV (PCR) Source Results below Mycoplasma pneumon IgG 3.09 H Mycoplasma pneumon IgM 553 04/30/25 05/03/25 05:02 05:00 WBC 7.8 RBC 4.71 Hgb 14.8 Hct 43.9 MCV 93.2 MCH 31.4 MCHC 33.7 RDW 11.1 L Plt Count 203 MPV 11.7 H Sodium 135 L Potassium 3.9 Chloride 103 Carbon Dioxide 24 Anion Gap 8 BUN 12 Creatinine 0.94 Estim Creat Clear Calc 111 Estimated GFR > 60 Glucose 98 Calcium 9.3 Total Bilirubin 0.7 AST 30 ALT 52 H Alkaline Phosphatase 68 Total Protein 8.9 H Albumin 4.1 CSF VDRL CSF Herpes I DNA (PCR) CSF Herpes II DNA (PCR) CMV DNA Quant PCR Not detected CMV Qnt PCR log IU/mL Not detected EBV (Quant-PCR) Quant EBV DNA Quant PCR log10 HSV (PCR) Source Mycoplasma pneumon IgG Mycoplasma pneumon IgM Hospitalist MIPS Advance Care Plan I have confirmed that the patient's Advanced Care Plan is present, code status is documented, or surrogate decision maker is listed in patient medical record.: Yes Medication Reconciliation I have utilized all available resources to obtain, update and review the patients current medications (includes all prescriptions, OTC, herbals, cannabis, and nutritional supplements).: Yes
[2025-05-03 14:53] VITALS: BP 128/98; PULSE 80; RESP 18; TEMP 36.4; O2SAT 98
[2025-05-03] MEDS: PREMIXIV IVPB (16:41)
[2025-05-03] MEDS: IMMUNE GLOBULIN IVPB (16:41)
[2025-05-03] MEDS: SUMAtriptan SUCCINATE 25 MG TABLET 50 MG PO (17:28)
[2025-05-03] MEDS: ACETAMINOPHEN 500 MG TABLET 1000 MG PO (17:28)
[2025-05-03 20:15] VITALS: PULSE 73; RESP 18; O2SAT 96
[2025-05-03 22:00] VITALS: BP 152/94; PULSE 73; RESP 18; TEMP 36.6; O2SAT 96
[2025-05-04 05:25] LABS: Hematocrit 41.6 % (42.0-52.0); Mean Corpuscular HGB Conc 33.7 g/dl (32-36); Mean Corpuscular Hemoglobin 31.7 pg (26-34); Mean Corpuscular Volume 94.1 fl (80-100); Mean Platelet Volume 11.5 fl (7.4-10.4); Platelet Count Result 183 k/mm3 (150-375); Red Blood Count 4.42 M/mm3 (4.6-6.20); Red Cell Distribution Width 11.2 % (11.5-14.5); White Blood Count 5.7 K/mm3 (4.5-10.0)
[2025-05-04 05:46] LABS: Alanine Aminotransferase 48 U/L (6-50); Alkaline Phosphatase 64 U/L (38-126); Anion Gap 7 mmol/L (4-12); Aspartate Amino Transferase 35 U/L (17-59); Bilirubin,Total 0.8 mg/dL (0.2-1.3); Blood Urea Nitrogen 13 mg/dL (9-20); Calcium 9.1 mg/dL (8.4-10.2); Carbon Dioxide 26 mmol/L (22-30); Chloride 104 mmol/L (98-107); Estimated CRCL calculation 105 ml/min; Estimated Glomerular Filt Rate > 60; Glucose 95 mg/dL (65-110); Potassium 4.2 mmol/L (3.4-5.0); Sodium 137 mmol/L (137-145); Total Protein 9.3 g/dL (6.3-8.2)
[2025-05-04 05:52] VITALS: BP 141/78; PULSE 75; RESP 16; TEMP 36.8; O2SAT 95
[2025-05-04] MEDS: CHOLECALCIFEROL (VITAMIN D3) 125 MCG (5,000 UNITS) TABLET PO (09:09)
[2025-05-04] MEDS: CYANOCOBALAMIN 1,000 MCG TABLET 1000 MCG PO (09:09)
--- NOTE | 2025-05-04 09:43 | PM.IMPN ---
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 Started on IV immunoglobulin for 5 days weakness and paresthesias to bilateral upper and lower extremities with onset 2 days ago, 04/25. Onset to all extremities, did not endorse ascending or descending symptomatology No recent vaccinations. Patient had no recent symptoms but family had upper respiratory infection 2 weeks ago. His reports she had a sore throat. Neurology consulted, Israel MCCULLOUGH. 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 LP done 04/28. GS negative. No WBC's or organisms. No nucleated cells, protein 50, glucose 63. --Follow LP cultures, EBV, HSV, VZV --Sent serologies, EBV, Mycoplasma, CMV DNA, IgM, IgG Avidity & Ab --RVP pending. Would add on to CSF fluid if positive for rhino/enterovirus - Vitamin D undetectable, B12 low. Folate normal. Follow B1/B6, methylmalonic acid, immunofixation serum, homocystine, A1c. Add TSH. B12 was low--1 dose IM B12 then daily Vitamin D undetectable, 125mg daily (5000 units daily) Added Thiamine 500mg x3 doses. B1 lab can be unreliable Add a MVI --MRI total spine pending, called radiologist and asked for a read tonight --Pending results of MRI, planning IVIG 0.4 grams/kilogram x5 days --Follow respiratory symptoms. Reports shortness of breath with activity but none at rest. Hx asthma but no wheezing. Continue to monitor. Risk for respiratory failure if ascending --Unable to order bedside pulmonary testing inpatient. Added incentive spirometry. Can make it to 4000 but takes an effort --BP fluctuations can occur due to autonomic dysfunction, monitor - will hold on consultation to speech therapy at this time for swallow study, patient reports no dysphagia or choking episodes (2) Difficulty in walking: Code(s): R26.2 - Difficulty in walking, not elsewhere classified Status: Acute Assessment and Plan: - See above (3) Elevated blood pressure reading without diagnosis of hypertension: Code(s): R03.0 - Elevated blood-pressure reading, without diagnosis of hypertension Status: Acute Assessment and Plan: - initial BP 150/100, no previous diagnosis of hypertension. Ranging 123-148/79-90 today - here for symptomatology concerning for autonomic dysfunction and Guillain-Stanford syndrome. Neurology noted that there may be blood pressure fluctuations with autonomic dysregulation, monitor closely. Will hold on initiating blood pressure medications at this time. Plan Diet: regular GI Prophylaxis: not currently indicated DVT Prophylaxis: low risk IV fluids: none Lines/Tubes: peripheral IV Code Status: full code Subjective Date/time seen: 05/04/25 09:43 Interval history: Labs are reviewed. Total protein is elevated. Continue IV immunoglobin Review of Systems Review of Systems: All systems reviewed & are unremarkable except as noted in HPI and below Exam Narrative: General - Awake and alert. No acute distress Eyes - PERRLA, EOM intact ENT - No thrush, No erythema Neck - No noticeable or palpable swelling Lymph Nodes - No lymphadenopathy Cardiovascular - RRR no m/r/g, no JVD Lungs: Clear to auscultation, No wheezing, use of accessory muscles, no crackles Skin - Skin warm and dry, no wounds or rashes Abdomen - Normal bowel sounds, abdomen soft and nontender Extremities - No edema, cyanosis or clubbing Musculoskeletal - 4/5 strength, normal range of motion, no swollen or erythematous joints. Neurological ? Alert and oriented x 3, minimal left facial droop. Mild weakness bilateral legs and arms, slightly weaker on the left. Unsteady gait Psych: Normal mood and affect Const: General: comfortable and no acute distress Other: , male, nontoxic appearance HENMT: Face/Nose/Sinus: Normal nares present Mouth: Yes moist mucous membranes Eyes: General: appearance normal, both eyes and all related structures Sclera: sclerae normal Pupils: Equal, round and reactive pupils present EOM: EOMs intact bilaterally Resp: Effort & Inspection: normal respiratory effort Auscultation: clear to auscultation bilaterally Cardio: Rate: regular rate Rhythm: regular rhythm Other: S1-S2 present without murmur, rub, ectopy GI: Other: Abdomen soft, nondistended, nontender. Normoactive bowel sounds in all quadrants. Skin: General skin exam: normal color and no rashes or lesions noted Wounds: no wounds Neuro: Cranial nerves: Yes Equal, round and reactive pupils present Speech: normal speech Other: Paresthesias/sensory loss below the knee bilaterally. Mild weakness noted to lower extremities, symmetric. DTR absent in knees and ankles. Gait affected. Extrem: General: normal to inspection Psych: Mental Status: mental status grossly normal Affect: normal affect Other: Good insight and judgment, very pleasant Objective Data Vital Signs Vital Signs: Vital Signs - 24 hr 05/03/25 14:53 05/03/25 20:15 05/03/25 22:00 Temperature 97.5 F L 98 F Pulse Rate 80 73 73 Respiratory Rate 18 18 18 Blood Pressure 128/98 H 152/94 H Pulse Oximetry 98 96 96 Oxygen Delivery Room Air Fraction of Inspired Oxygen 21 05/04/25 05:52 Temperature 98.2 F Pulse Rate 75 Respiratory Rate 16 Blood Pressure 141/78 H Pulse Oximetry 95 Oxygen Delivery Fraction of Inspired Oxygen Intake/Output Intake/Output: Intake & Output 05/01/25 05/02/25 05/03/25 05/04/25 23:59 23:59 23:59 23:59 Intake Total 1520 1910 1540.0 480 Balance 1520 1910 1540.0 480 Meds/Results Medications: Active Medications Generic Name Dose Route Start Last Admin Trade Name Freq PRN Reason Stop Dose Admin Acetaminophen 1,000 mg 05/03/25 17:18 05/03/25 17:28 Acetaminophen 500 Mg Tablet PO 1,000 mg Q6H PRN Administration Mild Pain (1-3) or Fever Albuterol 1 puff 04/27/25 18:15 Albuterol Sulfate (*Sp) Aerosol 1 Puff INHALATION Q4HRT PRN shortness of breath or wheezin Cyanocobalamin 1,000 mcg 04/30/25 09:00 05/04/25 09:09 Cyanocobalamin 1,000 Mcg Tablet PO 1,000 mcg QAM MARK Administration Hydroxyzine HCl 10 mg 04/27/25 18:15 Hydroxyzine Hcl 10 Mg Tablet PO TID PRN anxiety Immune Globulin 40 gm/ N/A 400 mls @ 20 mls/hr 04/30/25 17:00 05/03/25 20:16 IVPB 05/05/25 12:59 Infused Q24H MARK Infusion Loratadine 10 mg 04/27/25 18:18 05/02/25 09:18 Loratadine 10 Mg Tablet PO 10 mg QAM PRN Administration allergy symptoms Ondansetron HCl 4 mg 04/27/25 18:23 05/02/25 23:02 Ondansetron Inj 4 Mg/2 Ml Vial IV PUSH 4 mg Q6H PRN Administration Nausea And Vomiting Vitamin D 125 mcg 04/30/25 09:00 05/04/25 09:09 Cholecalciferol (Vitamin D3) 125 Mcg (5,000 Units) Tablet PO 125 mcg DAILY MARK Administration Radiology Results: ITS Impressions Head CT 04/27/25 13:14 Impression: No acute intracranial hemorrhage or suspicious mass effect. Trace inflammatory sinus disease. Brain MRI 04/28/25 11:13 IMPRESSION: No significant abnormality. Lumbar Puncture Fluoroscopy 04/28/25 17:25 IMPRESSION: 1. Successful fluoro-guided lumbar puncture with normal opening pressure of 16 cm water. Cervical Spine MRI 04/29/25 22:20 IMPRESSION: 1. No definite bone abnormality. 2. No evidence of spinal canal stenosis or significant disc disease. 3. Enhancement in the intervertebral foramina is seen at multiple levels which may indicate enhancement in the nerve roots. Clinical correlation and follow-up advised. Lumbar Spine MRI 04/29/25 22:53 IMPRESSION: 1. 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 Clinical correlation and follow-up advised. Thoracic Spine MRI 04/29/25 23:05 IMPRESSION: No compression fracture or significant stenosis of the thoracic spine. Enhancement in the nerve roots is seen at multiple levels which may indicate GBS Labs Labs: Laboratory Results - last 24 hr 05/04/25 04:51 WBC 5.7 RBC 4.42 L Hgb 14.0 Hct 41.6 L MCV 94.1 MCH 31.7 MCHC 33.7 RDW 11.2 L Plt Count 183 MPV 11.5 H Sodium 137 Potassium 4.2 Chloride 104 Carbon Dioxide 26 Anion Gap 7 BUN 13 Creatinine 0.99 Estim Creat Clear Calc 105 Estimated GFR > 60 Glucose 95 Calcium 9.1 Total Bilirubin 0.8 AST 35 ALT 48 Alkaline Phosphatase 64 Total Protein 9.3 H Albumin 4.0 Hospitalist [facility] Advance Care Plan I have confirmed that the patient's Advanced Care Plan is present, code status is documented, or surrogate decision maker is listed in patient medical record.: Yes Medication Reconciliation I have utilized all available resources to obtain, update and review the patients current medications (includes all prescriptions, OTC, herbals, cannabis, and nutritional supplements).: Yes
[2025-05-04 14:00] VITALS: BP 140/88; PULSE 75; RESP 16; TEMP 36.8; O2SAT 98
--- NOTE | 2025-05-04 14:21 | P.PNNEUR_ITS ---
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 We shall continue with IVIG for now. 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 The pulmonary function test by the bedside however did not show any drop in his forced vital capacity. However when walking he became short of breath and the occupational therapist was helping him were for his brushing of the teeth. His oxygen saturation have been within normal range. His blood pressure seems to fluctuate. Overall he is the tolerating the IVIG fairly well. Review of Systems Review of Systems: All systems reviewed & are unremarkable except as noted in HPI and below Exam Const: General: cooperative, well developed and alert Orientation/consciousness: patient oriented x3 HENMT: Head: atraumatic Mouth: Yes oropharynx normal Eyes: Alignment and Position: position normal Pupils: Equal, round and reactive pupils present EOM: EOMs intact bilaterally Neck: Neck: supple Resp: Effort & Inspection: normal respiratory effort Neuro: General: patient oriented x3 Cranial nerves: Yes CN's II-XII intact bilaterally, Yes facial sensation intact/muscles of mastication intact, Yes Equal, round and reactive pupils present, Yes facial symmetry and Yes Midline tongue present Cognition (Neuro): normal cognition Speech: normal speech Motor exam (neuro): 5/5 motor strength present throughout Sensory Exam: normal sensation Coordination: [id number] test normal and Normal rapid alternating movements of the distal upper extremity present (Neuro) Other: No definite distal sensory loss however he has seizures in both upper and lower limbs distally. Deep tendon reflexes the knees and ankles where still absent. Objective Data Vital Signs Vital Signs: Vital Signs - 24 hr 05/03/25 14:53 05/03/25 20:15 05/03/25 22:00 Temperature 97.5 F L 98 F Pulse Rate 80 73 73 Respiratory Rate 18 18 18 Blood Pressure 128/98 H 152/94 H Pulse Oximetry 98 96 96 Oxygen Delivery Room Air Fraction of Inspired Oxygen 21 05/04/25 05:52 05/04/25 09:00 05/04/25 14:00 Temperature 98.2 F 98.2 F Pulse Rate 75 75 Respiratory Rate 16 16 Blood Pressure 141/78 H 140/88 Pulse Oximetry 95 98 Oxygen Delivery Fraction of Inspired Oxygen 21 Intake/Output Intake/Output: Intake & Output 05/01/25 05/02/25 05/03/25 05/04/25 23:59 23:59 23:59 23:59 Intake Total 1520 1910 1540.0 480 Balance 1520 1910 1540.0 480 Meds/Results Medications: Active Medications Generic Name Dose Route Start Last Admin Trade Name Freq PRN Reason Stop Dose Admin Acetaminophen 1,000 mg 05/03/25 17:18 05/03/25 17:28 Acetaminophen 500 Mg Tablet PO 1,000 mg Q6H PRN Administration Mild Pain (1-3) or Fever Albuterol 1 puff 04/27/25 18:15 Albuterol Sulfate (*Sp) Aerosol 1 Puff INHALATION Q4HRT PRN shortness of breath or wheezin Cyanocobalamin 1,000 mcg 04/30/25 09:00 05/04/25 09:09 Cyanocobalamin 1,000 Mcg Tablet PO 1,000 mcg QAM MARK Administration Hydroxyzine HCl 10 mg 04/27/25 18:15 Hydroxyzine Hcl 10 Mg Tablet PO TID PRN anxiety Immune Globulin 40 gm/ N/A 400 mls @ 20 mls/hr 04/30/25 17:00 05/03/25 20:16 IVPB 05/05/25 12:59 Infused Q24H MARK Infusion Loratadine 10 mg 04/27/25 18:18 05/02/25 09:18 Loratadine 10 Mg Tablet PO 10 mg QAM PRN Administration allergy symptoms Ondansetron HCl 4 mg 04/27/25 18:23 05/02/25 23:02 Ondansetron Inj 4 Mg/2 Ml Vial IV PUSH 4 mg Q6H PRN Administration Nausea And Vomiting Vitamin D 125 mcg 04/30/25 09:00 05/04/25 09:09 Cholecalciferol (Vitamin D3) 125 Mcg (5,000 Units) Tablet PO 125 mcg DAILY MARK Administration Radiology Results: ITS Impressions Head CT 04/27/25 13:14 Impression: No acute intracranial hemorrhage or suspicious mass effect. Trace inflammatory sinus disease. Brain MRI 04/28/25 11:13 IMPRESSION: No significant abnormality. Lumbar Puncture Fluoroscopy 04/28/25 17:25 IMPRESSION: 1. Successful fluoro-guided lumbar puncture with normal opening pressure of 16 cm water. Cervical Spine MRI 04/29/25 22:20 IMPRESSION: 1. No definite bone abnormality. 2. No evidence of spinal canal stenosis or significant disc disease. 3. Enhancement in the intervertebral foramina is seen at multiple levels which may indicate enhancement in the nerve roots. Clinical correlation and follow-up advised. Lumbar Spine MRI 04/29/25 22:53 IMPRESSION: 1. 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 Clinical correlation and follow-up advised. Thoracic Spine MRI 04/29/25 23:05 IMPRESSION: No compression fracture or significant stenosis of the thoracic spine. Enhancement in the nerve roots is seen at multiple levels which may indicate GBS Labs Labs: Laboratory Results - last 24 hr 05/04/25 04:51 WBC 5.7 RBC 4.42 L Hgb 14.0 Hct 41.6 L MCV 94.1 MCH 31.7 MCHC 33.7 RDW 11.2 L Plt Count 183 MPV 11.5 H Sodium 137 Potassium 4.2 Chloride 104 Carbon Dioxide 26 Anion Gap 7 BUN 13 Creatinine 0.99 Estim Creat Clear Calc 105 Estimated GFR > 60 Glucose 95 Calcium 9.1 Total Bilirubin 0.8 AST 35 ALT 48 Alkaline Phosphatase 64 Total Protein 9.3 H Albumin 4.0
[2025-05-04] MEDS: IMMUNE GLOBULIN IVPB (16:05)
[2025-05-04] MEDS: PREMIXIV IVPB (16:05)
[2025-05-04 17:28] LABS: Source FLEX SWAB
[2025-05-04 20:30] VITALS: BP 146/90; PULSE 80; RESP 18; TEMP 36.6; O2SAT 100
[2025-05-04] MEDS: ACETAMINOPHEN 500 MG TABLET 1000 MG PO (20:46)
[2025-05-05 04:44] VITALS: BP 148/83; PULSE 89; RESP 16; TEMP 36.1; O2SAT 99
[2025-05-05 06:27] LABS: Hematocrit 43.3 % (42.0-52.0); Hemoglobin 14.5 g/dL (14.0-18.0); Mean Corpuscular HGB Conc 33.5 g/dl (32-36); Mean Corpuscular Hemoglobin 31.6 pg (26-34); Mean Corpuscular Volume 94.3 fl (80-100); Mean Platelet Volume 11.9 fl (7.4-10.4); Platelet Count Result 196 k/mm3 (150-375); Red Blood Count 4.59 M/mm3 (4.6-6.20); Red Cell Distribution Width 11.1 % (11.5-14.5); White Blood Count 4.6 K/mm3 (4.5-10.0)
[2025-05-05 06:31] LABS: Alanine Aminotransferase 63 U/L (6-50); Albumin Level 4.3 g/dL (3.5-5.1); Alkaline Phosphatase 71 U/L (38-126); Anion Gap 11 mmol/L (4-12); Aspartate Amino Transferase 52 U/L (17-59); Bilirubin,Total 0.8 mg/dL (0.2-1.3); Blood Urea Nitrogen 17 mg/dL (9-20); Calcium 9.2 mg/dL (8.4-10.2); Carbon Dioxide 23 mmol/L (22-30); Chloride 101 mmol/L (98-107); Estimated CRCL calculation 98 ml/min; Estimated Glomerular Filt Rate > 60; Glucose 92 mg/dL (65-110); Potassium 4.2 mmol/L (3.4-5.0); Sodium 135 mmol/L (137-145); Total Protein 10.2 g/dL (6.3-8.2)
--- NOTE | 2025-05-05 07:29 | P.DS_ITS ---
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 Started on IV immunoglobulin for 5 days weakness and paresthesias to bilateral upper and lower extremities with onset 2 days ago, 04/25. Onset to all extremities, did not endorse ascending or descending symptomatology No recent vaccinations. Patient had no recent symptoms but family had upper respiratory infection 2 weeks ago. His reports she had a sore throat. Neurology consulted, Israel MCCULLOUGH. provided the following recs: suspect Guillain-[place] syndrome MRI of the brain with/without contrast, and was normal. LP done 04/28. GS negative. No WBC's or organisms. No nucleated cells, protein 50, glucose 63. --Follow LP cultures, EBV, HSV, VZV --Sent serologies, EBV, Mycoplasma, CMV DNA, IgM, IgG Avidity & Ab --RVP pending. Would add on to CSF fluid if positive for rhino/enterovirus - Vitamin D undetectable, B12 low. Folate normal. Follow B1/B6, methylmalonic acid, immunofixation serum, homocystine, A1c. Add TSH. B12 was low--1 dose IM B12 then daily Vitamin D undetectable, 125mg daily (5000 units daily) Added Thiamine 500mg x3 doses. B1 lab can be unreliable Add a MVI --MRI total spine reviewed --as per neurology IVIG 0.4 grams/kilogram x5 days --Follow respiratory symptoms. Reports shortness of breath with activity but none at rest. Hx asthma but no wheezing. Continue to monitor. Risk for respiratory failure if ascending --respiratory therapy assess PFR. Added incentive spirometry. Can make it to 4000 but takes an effort --BP fluctuations can occur due to autonomic dysfunction, monitor - will hold on consultation to speech therapy at this time for swallow study, patient reports no dysphagia or choking episodes (2) Difficulty in walking: Code(s): R26.2 - Difficulty in walking, not elsewhere classified Status: Acute Assessment and Plan: - See above (3) Elevated blood pressure reading without diagnosis of hypertension: Code(s): R03.0 - Elevated blood-pressure reading, without diagnosis of hypertension Status: Acute Assessment and Plan: - initial BP 150/100, no previous diagnosis of hypertension. Ranging 123-148/7 9-90 today - here for symptomatology concerning for autonomic dysfunction and Guillain- [place]bridge syndrome. Neurology noted that there may be blood pressure fluctuations with autonomic dysregulation, monitor closely. Will hold on initiating blood pressure medications at this time. DS: Summary Hospital Course Hospital Course: 25 y/o M with asthma and migraines presents here with weakness and paresthesias to his upper and lower extremities. The patient presents here from home for further evaluation of weakness and paresthesias to his bilateral upper and lower extremities. He reports onset approximately 2 days ago. Numbness/weakness affected all extremities at once, did not start in uppers or lowers. It is also accompanied by gait disturbance. Further described as a shuffling, short stepped gait. No accompanying vision changes, dysphagia, dysarthria, or shortness of breath. He denies any precipitating trauma, vaccinations/live vaccinations, or infections. He denies any significant neurological family history or personal history. He is also reporting diarrhea for the past week, however he does have a history of lactose intolerance. Blood pressure upon arrival was 150/100, he reports no/history of hypertension. Initial VS at presentation: 97.8? F, HR 81, RR 18, 150/100, and 100% on RA. ED workup showed: no leukocytosis or anemia, normal coags, no significant electrolyte derangements, renal function within normal limits, glucose 106, ALT 87, UA unremarkable, UDS negative, ethanol negative, viral PCR negative. Head CT showed no acute intracranial hemorrhage or suspicious mass effect, trace inflammatory sinus disease. 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 Started on IV immunoglobulin for 5 days. No evidence of respiratory compromise. On the day of discharge, the patient was seen and examined. Vital signs were stable. Physical exam were stable and labs were reviewed at length. Discharge instructions, medications, and follow-up appointments were discussed with the patient at length and all day questions were answered. ER warnings were given. Patient needs to follow-up with neurology Status at Discharge Cognitive/behavioral status at discharge: Stable Time Spent with Patient Time attestation: Total time spent providing and/or coordinating discharge services: 45 minute Exam Narrative: General - Awake and alert. No acute distress Eyes - PERRLA, EOM intact ENT - No thrush, No erythema Neck - No noticeable or palpable swelling Lymph Nodes - No lymphadenopathy Cardiovascular - RRR no m/r/g, no JVD Lungs: Clear to auscultation, No wheezing, use of accessory muscles, no crackles Skin - Skin warm and dry, no wounds or rashes Abdomen - Normal bowel sounds, abdomen soft and nontender Extremities - No edema, cyanosis or clubbing Musculoskeletal - 4/5 strength, normal range of motion, no swollen or erythematous joints. Neurological ? Alert and oriented x 3, minimal left facial droop. Mild weakness bilateral legs and arms, slightly weaker on the left. Unsteady gait Psych: Normal mood and affect Const: General: comfortable and no acute distress Other: , male, nontoxic appearance HENMT: Face/Nose/Sinus: Normal nares present Mouth: Yes moist mucous membranes Eyes: General: appearance normal, both eyes and all related structures Sclera: sclerae normal Pupils: Equal, round and reactive pupils present EOM: EOMs intact bilaterally Resp: Effort & Inspection: normal respiratory effort Auscultation: clear to auscultation bilaterally Cardio: Rate: regular rate Rhythm: regular rhythm Other: S1-S2 present without murmur, rub, ectopy GI: Other: Abdomen soft, nondistended, nontender. Normoactive bowel sounds in all quadrants. Skin: General skin exam: normal color and no rashes or lesions noted Wounds: no wounds Neuro: Cranial nerves: Yes Equal, round and reactive pupils present Speech: normal speech Other: Paresthesias/sensory loss below the knee bilaterally. Mild weakness noted to lower extremities, symmetric. DTR absent in knees and ankles. Gait affected. Extrem: General: normal to inspection Psych: Mental Status: mental status grossly normal Affect: normal affect Other: Good insight and judgment, very pleasant DS: Data Data Completed and Pending Labs on day of discharge: Labs from last 24 hours 05/05/25 04/28/25 05:34 15:18 WBC 4.6 RBC 4.59 L Hgb 14.5 Hct 43.3 MCV 94.3 MCH 31.6 MCHC 33.5 RDW 11.1 L Plt Count 196 MPV 11.9 H Sodium 135 L Potassium 4.2 Chloride 101 Carbon Dioxide 23 Anion Gap 11 BUN 17 Creatinine 1.07 Estim Creat Clear Calc 98 Estimated GFR > 60 Glucose 92 Calcium 9.2 Total Bilirubin 0.8 AST 52 ALT 63 H Alkaline Phosphatase 71 Total Protein 10.2 H Albumin 4.3 Resp Viral Panel Intrp See note Viral Specimen Source Flex swab Preliminary micro results at discharge 04/28/25 16:34 Fungal Culture and Stain - Preliminary Cerebral Spinal Fluid Imaging Radiologist's impression: ITS Impressions Head CT 04/27/25 13:14 Impression: No acute intracranial hemorrhage or suspicious mass effect. Trace inflammatory sinus disease. Brain MRI 04/28/25 11:13 IMPRESSION: No significant abnormality. Lumbar Puncture Fluoroscopy 04/28/25 17:25 IMPRESSION: 1. Successful fluoro-guided lumbar puncture with normal opening pressure of 16 cm water. Cervical Spine MRI 04/29/25 22:20 IMPRESSION: 1. No definite bone abnormality. 2. No evidence of spinal canal stenosis or significant disc disease. 3. Enhancement in the intervertebral foramina is seen at multiple levels which may indicate enhancement in the nerve roots. Clinical correlation and follow-up advised. Lumbar Spine MRI 04/29/25 22:53 IMPRESSION: 1. 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 Clinical correlation and follow-up advised. Thoracic Spine MRI 04/29/25 23:05 IMPRESSION: No compression fracture or significant stenosis of the thoracic spine. Enhancement in the nerve roots is seen at multiple levels which may indicate GBS Discharge Plan Discharge Attending physician on discharge: Ad Garcia Consulting providers: Savanah Wood Discharging Clinician: Ad Garcia Anticipated Discharge Date/Time: 05/05/25 07:31 Patient Disposition: Home Activity: as tolerated Diet: as tolerated Discharge Instructions: Check blood pressure 1 to 2 times a day. Record and bring into your doctor for review. Call your doctor if your blood pressure is greater than 180/110 or less than 90/45. Walk with cane or other assist device. Take precautions to avoid falls. Rise slowly from a lying or sitting position. Pause before standing or walking. Contact your doctor or call 911 and come to the Emergency Room if you have any type of trauma, lightheadedness with standing or other worrisome symptoms. Avoid NSAIDs (ibuprofen, naproxen, Aleve). Tylenol is safe to take. Follow-up with your primary care provider in 1-2 weeks. Please call for appointment. Follow-up with Neurology in 2-4 weeks. Please call for an appointment. Thank you for using [facility] for your health care needs. Patient Instructions: Antibiotic Form Patient Language: Turkish Stand Alone Forms: General Discharge Information Follow-up/Referrals: Savanah Wood MD [Physician] - Discharge Medications: New cholecalciferol (vitamin D3) 125 mcg (5,000 unit) Tablet 125 mcg PO DAILY Qty: 30 0RF cyanocobalamin (vitamin B-12) [Vitamin B-12] 1,000 mcg Tablet 1,000 mcg PO QAM Qty: 30 0RF Continued albuterol sulfate 90 mcg/actuation HFA aerosol inhaler 1 puff inhalation Q4H PRN (Reason: shortness of breath or wheezing) Qty: 8.5 1RF hydroxyzine HCl 10 mg tablet 10 mg PO TID PRN (Reason: anxiety) Qty: 30 0RF cetirizine [Zyrtec] 10 mg tablet 10 mg PO DAILY PRN (Reason: allergy symptoms) Date of admission: 04/29/25 11:21 Primary Care Provider: Abiodun Flower Admitting Provider: Kimberlee Tapia Attending physician on admission: Sana Moeller Condition: Stable
[2025-05-05] MEDS: CHOLECALCIFEROL (VITAMIN D3) 125 MCG (5,000 UNITS) TABLET PO (08:20)
[2025-05-05] MEDS: CYANOCOBALAMIN 1,000 MCG TABLET 1000 MCG PO (08:20)
--- NOTE | 2025-05-05 10:34 | PCRCNOTE ---
The patient was able to perform a NIF of >[id number] at 0855 this morning.
== END 2025-05-05 11:35 | disposition home or self-care (01) | DRG 49 ==
LOC: ANHED 13:02 → ANH2MED 17:25
PROVIDERS: Nurse Practitioner Acute Care; Psychiatry & Neurology Neurology; Student in an Organized Health Care Education/Training Program; Admitting Provider Internal Medicine; Emergency Provider Emergency Medicine; PCP Student in an Organized Health Care Education/Training Program; Visit Provider General Practice
DX: G61.0 Guillain-Barre syndrome (principal); M41.9 Scoliosis, unspecified; J45.909 Unspecified asthma, uncomplicated; R03.0 Elevated blood-pressure reading, without diagnosis of hypertension
CPT/HCPCS: 36415; 62328; 70450; 70553; 72156; 72157; 72158; 80048; 80053; 80307; 81003; 82077; 82306; 82550; 82607; 82746; 82945; 82948; 83036; 83090; 83690; 83735; 83921; 84100; 84157; 84207; 84425; 84443; 85025; 85027; 85610; 85730; 86334; 86592; 86644; 86645; 86664; 86665; 86738; 87070; 87102; 87206; 87254; 87497; 87529; 87637; 87798; 89051; 93005; 96374; 96376; 97110; 97161; 97165; 97530; 97535; 99285; A9270; A9577; G0378; G0379; J1459; J2060; J2405; J3411; J3420